=== PATIENT | male | born 1970 | race Caucasian/White ===

== ENCOUNTER 2018-04-18 19:59 | Inpatient (IN) | payer BC ==
--- NOTE | 2018-04-18 20:25 | ED ---
HPI Chest Pain - HPI Summary HPI Summary: A 48 y/o male presents to ED c/o constant chest pain/burning reaching 7/10 in severity. Currently, the patient is in pain, however, he characterized the pain as a burn and the heaviness is still present. In the ED room, the patient has a pulse of 93 BPM, O2 saturation of 96% and blood pressure of 184/113. As per triage, "Pt brought immediately to for EKG. Pt c/o left sided chest pain radiating to his LUE since this morning. Pt states pain is progressively getting worse". According to the patient, he woke up this AM when he suddenly felt a burning sensation in his chest. He noted that the pain became heavier and started radiating to under his armpit. After some time, it radiating to his other arm pit and bicep area. He took a total of 5 baby Aspirin which alleviated the pain, however the pain came back. Patient has no known medical conditions such as DM, high cholesterol and HTN, however, he has not been to the doctors in 20 years. SHx of heavy smoker (half pack a day for 25 years). FHx of heart disease and [place] (grandmother at 28 y/o). No PMHx of blood clots. - History of Current Complaint Chief Complaint: EDChestPainROMI Time Seen by Provider: 04/18/18 20:15 Hx Obtained From: Patient Onset/Duration: Started Hours Ago, Still Present Timing: Constant Initial Severity: Moderate Current Severity: Moderate Pain Intensity: 7 Pain Scale Used: 0-10 Numeric Chest Pain Location: Diffuse Chest Pain Radiates: Yes Chest Pain Radiates To:: Arm - Both armpits Character: Burning, Heaviness Aggravating Factor(s): Nothing Alleviating Factor(s): OTC Meds - Aspirin Associated Signs and Symptoms: Positive: Chest Pain - Allergy/Home Medications Allergies/Adverse Reactions: Allergies Allergy/AdvReac Type Severity Reaction Status Date / Time bee pollen Allergy Anaphylatic Verified 04/18/18 20:10 Shock Home Medications: Home Medications NK [No Home Medications Reported] 04/18/18 [History Confirmed 04/18/18] PMH/Surg Hx/FS Hx/Imm Hx Endocrine/Hematology History: Denies: Hx Diabetes Cardiovascular History: Denies: Hx Hypertension - Surgical History Surgery Procedure, Year, and Place: No prior surgeries noted. Infectious Disease History: No Infectious Disease History: Denies: Traveled Outside the [place] in Last 30 Days - Family History Known Family History: Positive: Cardiac Disease, Other - [place] - Social History Alcohol Use: Occasionally Substance Use Type: Reports: None Smoking Status (MU): Heavy Every Day Tobacco Smoker Type: Cigarettes - half pack/day Review of Systems Negative: Fever Positive: Chest Pain All Other Systems Reviewed And Are Negative: Yes Physical Exam - Summary Physical Exam Summary: GENERAL: Patient is a well-developed and nourished male who is lying comfortable in the stretcher. Patient is not in any acute respiratory distress. Normal exam. HEAD AND FACE: Normocephalic EYES: PERRLA, EOMI x 2. EARS: Hearing grossly intact. MOUTH: Oropharynx within normal limits. NECK: Supple, trachea is midline, no adenopathy, no JVD, no carotid bruit. CHEST: Symmetric, no tenderness at palpation LUNGS: Clear to auscultation bilaterally. No wheezing or crackles. CVS: Regular rate and rhythm, S1 and S2 present, no murmurs or gallops appreciated. ABDOMEN: Soft, non-tender. Bowel sounds are normal. No abdominal abnormal pulsations. EXTREMITIES: Full ROM in all major joints, no edema, no cyanosis or clubbing. NEURO: Alert and oriented x 3. No acute neurological deficits. Speech is normal and follows commands. SKIN: Dry and warm Triage Information Reviewed: Yes Vital Signs On Initial Exam: Initial Vitals Temp Pulse Resp BP Pulse Ox 98.2 F 81 20 203/106 98 04/18/18 20:08 04/18/18 20:08 04/18/18 20:08 04/18/18 20:08 04/18/18 20:08 Vital Signs Reviewed: Yes Diagnostics - Vital Signs Vital Signs Temp Pulse Resp BP Pulse Ox 04/18/18 20:08 98.2 F 81 20 203/106 98 - Laboratory Result Diagrams: 04/18/18 20:26 04/18/18 20:26 Lab Statement: Any lab studies that have been ordered have been reviewed, and results considered in the medical decision making process. - Radiology CXR Radiology Interpretation Completed By: ED Physician - NO ACUTE PROCESS. PENDING OFFICIAL REPORT. - EKG 1958 Cardiac Rate: NL - 96 BPM EKG Rhythm: Sinus Rhythm EKG Interpretation: L. SIDE ATRIAL ENLARGEMENT, INVERTED T'S IN INFR. LEAD, ST DEPR. LAT. LEAD 2112 Cardiac Rate: NL - 91 BPM EKG Rhythm: Sinus Rhythm ST Segment: Non-Specific - NON-SPECIFIC T-WAVE CHANGES IN THE INFERIOR LEADS Chest Pain Course/Dx - Course Course Of Treatment: A 48 y/o male presents to ED c/o constant chest pain/ burning reaching 7/10 in severity. Initial EKG showed ischemic changes and first troponin was 0.63. Patient was given NTG and started on a heparin drip. Patient's case was discussed with articulation officer, Dr. Jeffries, who recommended a beta jake and repeat EKG and so patient was ordered for metroprolol. Patient pain was controlled with NTG. Patient already took full dose aspirin REGULATORY COMPLIANCE DIRECTOR. I Discussed results with patient. Patient's case was discussed with hospitalist for admission. Patient was seen and evaluated by articulation officer and hospitialist at bedside and was subsequently admitted to ICU. Patient stable upon admission. - Diagnoses Provider Diagnoses: STEMI (ST elevation myocardial infarction), Chest pain - Provider Notifications Discussed Care Of Patient With: Nidia Jeffries Time Discussed With Above Provider: 21:10 Instructed by Provider To: Other - Recommends Beta Jake and Repeat EKG. 2202 Dr. Flynn accepts patient for admission. - Critical Care Time Critical Care Time: 30-74 min Discharge - Sign-Out/Discharge Documenting (check all that apply): Patient Departure - ADMIT, Sign-Out Patient Signing out patient TO: Nadeen Sim Receiving patient FROM: Johnnie Vail - Discharge Plan Condition: Stable Disposition: ADMITTED TO [facility] - Billing Disposition and Condition Condition: STABLE Disposition: Admitted to [facility] - Attestation Statements Document Initiated by Scribe: Yes Documenting Scribe: Luis Fernando Bullock Provider For Whom Scribe is Documenting (Include Credential): Johnnie Vail MD Scribe Attestation: Luis Fernando Ricci, scribed for Johnnie Vail MD on 04/19/18 at 0118. Scribe Documentation Reviewed: Yes Provider Attestation: The documentation as recorded by the Luis Fernando ashraf accurately reflects the service I personally performed and the decisions made by me, Johnnie Vail MD
[2018-04-18 20:37] LABS: ABS Basophils 0.2 10^3/ul (0-0.2); ABS Eosinophils 0.1 10^3/ul (0-0.6); ABS Lymphocytes 2.7 10^3/ul (1.0-4.8); ABS Monocytes 0.9 10^3/ul (0-0.8); ABS Neutrophils 6.3 10^3/ul (1.5-7.7); ABS Nucleated RBC 0 10^3/ul; Eosinophil % 1.4 % (0-6); Hematocrit 46 % (42-52); Hemoglobin 16.1 g/dl (14.0-18.0); Lymphocyte % 26.6 % (25-47); Mean Corpuscular HGB Conc 35 g/dl (31-36); Mean Corpuscular Hemoglobin 32 pg (27-31); Mean Corpuscular Volume 92 fL (80-94); Mean Platelet Volume 8.6 um3 (7.4-10.4); Nucleated Red Blood Cells % 0; Platelet Count 246 10^3/ul (150-450); Red Blood Count 4.99 10^6/ul (4.00-5.40); Red Cell Distribution Width 14 % (10.5-15); White Blood Count 10.3 10^3/ul (3.5-10.8)
[2018-04-18 20:44] LABS: INR 0.82 (0.77-1.02)
[2018-04-18] MEDS ORDERED: Nitroglycerin TAB 0.4 MG* 0.4 MG TAB SL ONE (20:52)
[2018-04-18 20:53] LABS: EGFR Non-African American 61.1 (>60)
[2018-04-18] MEDS ORDERED: Metoprolol Tartrate TAB* 25 MG PO ONE ×2 (21:13→23:14)
[2018-04-18] MEDS ORDERED: Heparin DRIP 25,000 UNITS(*) 25,000 UNITS/500 ML BAG IV SCH ×2 (21:15→23:30)
[2018-04-18] MEDS: Heparin VIAL(*) 5000 UNITS/ML VIAL (FIVE THOUSAND) IV SCH (21:35)
[2018-04-18] MEDS ORDERED: nitroGLYCERIN DRIP* 25,000 MCG/250 ML BTL ONE (22:44)
[2018-04-18] MEDS: nitroGLYCERIN DRIP* 25,000 MCG/250 ML BTL IV SCH (23:05)
[2018-04-18] MEDS ORDERED: Atorvastatin* 40 MG TAB PO ONE (23:16)
[2018-04-18] MEDS ORDERED: Metoprolol Tartrate IV* 1 MG/ML 5 ML VIAL IV ONE (23:24)
[2018-04-18 23:31] LABS: Urine Appearance Clear; Urine Blood Negative (Negative); Urine Color Yellow; Urine Ketones Negative (Negative); Urine Protein Negative (Negative); Urine Specific Gravity 1.015 (1.010-1.030); Urine Urobilinogen Negative (Negative)
[2018-04-18] MEDS ORDERED: Al Hydrox/Mg Hydrox/Simet LIQ* 30 ML UDC PO ONE (23:32)
[2018-04-18] MEDS ORDERED: Lidocaine 2% VISCOUS* 15 ML UDC PO ONE (23:32)
[2018-04-19] MEDS ORDERED: Metoprolol Tartrate TAB* 25 MG PO ONE (00:09)
[2018-04-19] MEDS ORDERED: NS 0.9% 100 ML* 100 ML IV ONE (00:16)
[2018-04-19] MEDS ORDERED: Temazepam CAP* 15 MG PO ONE ×2 (00:17→21:25)
--- NOTE | 2018-04-19 03:08 | HP ---
CC: Dr. Jeffries * HISTORY AND PHYSICAL: DATE OF ADMISSION: 04/18/18 PRIMARY CARE PROVIDER: None. ATTENDING PHYSICIAN WHILE IN THE HOSPITAL: Dr. Nadeen Sim * (report dictated by Gustavo Crockett NP). CHIEF COMPLAINT: Chest pain. HISTORY OF PRESENTING ILLNESS: Mr. Dick is a 48-year-old male patient. He has a history of tobacco abuse only, history of spinal fusion. He comes into the ED today stating that around 9 o'clock he was at work today, he started noticing a chest discomfort, burning, pressure, heaviness. It went into underneath both his arms. No associated nausea, diaphoresis, or sweating. He has had been an hour into this, the pain was getting worse, he called his mother to bring him some aspirin. He took that aspirin, the pain got better throughout the day, it was down to about a 2; however, later this evening around 1900 when he was going home from work, he started having discomfort again , much more severe. He was concerned because it was starting to go into his shoulders and down the left arm. It was pressure, burning, heaviness, tight. He called his and the patient came into the ER to be evaluated. He denied any recent cough, fevers, chills. The pain does not worsen with position. He just described it as burning, heaviness, tightness, pressure in the chest that just is not getting any better. He does state that he has not had any of these symptoms in the last several weeks that he is aware of. No exertional chest pain. He does, again, carry the history of smoking. He does not see a primary routinely. He states that he has not had any recent trips or long travel. No recent surgeries. No calf pain or leg tenderness. He came into the ED. It was noted that his troponin was 0.63. His CK-MB was elevated. He was evaluated. He was started on beta-blockers, aspirin, heparin. It was noted that his blood pressure was poorly controlled while he was here; however, when seeing him, he was complaining that the pain was getting worse again at about 8/ 10. So, because of this, we were asked to evaluate for admission. PAST MEDICAL HISTORY: Again, significant for tobacco abuse. PAST SURGICAL HISTORY: He has had spinal fusion. MEDICATIONS: Home meds are denied. ALLERGIES TO MEDICATIONS: BEES. FAMILY HISTORY: His maternal grandmother had an ND when she was in her 20s according to the patient. His mother is a diabetic. Father had stents when he was in his 70 for a CAD. SOCIAL HISTORY: He is a half a pack a day smoker. He does drink occasionally. 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 Surrogate decision maker is his . REVIEW OF SYSTEMS: There is no documented fever. He denied having any significant weight change. There was no double vision. There was no ear discharge. He denied having any rhinorrhea. There was no sore throat, no thyroid enlargement. He did admit the chest pain per my HPI. There was no orthopnea, no nocturnal dyspnea. He denies having any abdominal pain. There was no nausea. There was no vomiting. There was no dysuria. There was no frequency. There was no seizure. No loss of consciousness. No pruritus and no skin ulcerations. Review of 14 systems completed, all others were negative. PHYSICAL EXAMINATION GENERAL: At this time, Mr. Dick is a 48-year-old male patient. He appears to be well nourished, well developed. He is sitting in the ED stretcher. He does not appear to be in any acute distress. VITAL SIGNS: Blood pressure 203/106, pulse 81, respirations 20, O2 sat 98%, temperature 98.2. HEENT: Head is atraumatic and normocephalic. Eyes: EOMs are intact. Sclerae anicteric, not pale. Throat: Oral mucosa appears to be moist. No oropharyngeal erythema. NECK: Supple. LUNGS: Clear to auscultation bilaterally. No wheezes, rales, or rhonchi. HEART: Sounds S1, S2. He had a regular rate and rhythm. No murmurs, rubs, or gallops. ABDOMEN: Soft, it was flat, it was nontender. Bowel sounds were present. EXTREMITIES: Pulses were 2+ throughout. He is moving all 4 extremities with 5/ 5 strength. NEUROLOGICAL: The patient is awake, he is alert, and he is oriented x3. His tongue is midline. Curtain Cleaner were equal. He had no gross focal deficits. SKIN: Intact. DIAGNOSTIC STUDIES/LAB DATA: Labs today are revealing a WBC of 10.3, RBC of 4.99, hemoglobin of 16.1, hematocrit of 46, platelet count of 246. INR was 0.82 , PTT was 32. D-dimer less than 200. The sodium was 136, potassium was 4.1, chloride of 103, bicarb 25, BUN 13, creatinine of 1.26, his glucose was 110, lactate 1.9, calcium 9.3. Mag 1.9. Total bili 0.4, AST 37, ALT 50, alk phos 106. CK-MB 10.7. Troponin 0.63. His BNP was 14. Albumin was 4.2. Urine obtained, it was negative. He had several EKGs in the ED, last one at 2300. Most recent at 2300 showed normal sinus rhythm, rate of 71, no ST elevations or T-wave inversions. His initial EKG at 1999 showed normal sinus rhythm, appears to have LVH, no ST elevations or T-wave inversions were noted. A chest x-ray obtained today showed no pulmonary edema. The costophrenic angles appear to be clear. No infiltrates were noted. Old medical records were reviewed. ASSESSMENT AND PLAN: Mr. Dick is a 48-year-old male patient coming into the ED today with complaints of chest discomfort, intermittently throughout the day today and chest pressure at times, described as a burning, who came into the ED , was noted that his troponin was elevated and he continued to have worsening chest pain on my evaluation. We were asked to evaluate for admission. He will be admitted under inpatient status for: 1. Vdd-YH-jmcyjezzq myocardial infarction. At this point, I did touch base with Dr. Jeffries. I had asked her to come to the bedside to evaluate the patient given that he is having ongoing chest pain. I have him on nitroglycerin and titrating this to effect, trying to get better control of his blood pressure. I am sending off a urine tox as to make sure there is no stimulants on board, just cocaine. I am getting a repeat troponin done now. Echo was being done at the bedside with Dr. Jeffries in the morning and again with serial EKGs. He received aspirin today. We are going to continue aspirin , statin, beta-lana therapy, heparin, and nitrates and place in the ICU for close monitoring and may need to consider catheterization if we cannot get his chest pain better controlled. 2. Hypertensive emergency. Given the fact that his troponin is elevated and he is having active chest pain, I do have him on a nitroglycerin drip. My goal is to try to get that systolic less than 160 and the diastolic less than 100 and continue to follow. 3. DVT prophylaxis: He is on a heparin drip. 4. Fluid, electrolytes, nutrition: He is n.p.o. pending cardiology evaluation. 5. Code status: Full code. TIME SPENT: On admission, was 60 minutes, greater than half the time was spent [id number] with the patient obtaining my history and physical, other half the time was spent going over the plan of care with the patient and implementing plan of care. I did discuss the plan of care with my attending, Dr. Sim; she is in agreement. GUSTAVO CROCKETT, FERNANDO [id number]/[facility] #: [id number] MTDD
--- NOTE | 2018-04-19 04:21 | CONS ---
CC: Hospitalist Service CARDIOLOGY CONSULTATION NOTE: DATE OF CONSULT: 04/18/18 REASON FOR CONSULT: Chest pain and elevated troponins. CHIEF COMPLAINT: Chest discomfort. HISTORY OF PRESENT ILLNESS: Mr. Dick is a 48-year-old gentleman with no prior cardiac history. He has not seen a doctor in 20 years. 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 He presented to the emergency room. His initial troponin was mildly elevated. He was hypertensive. He was treated with heparin drip, aspirin, 25 mg of oral Lopressor, and a nitroglycerin drip had been started at low levels at the time of my arrival and he was still having chest pain. His 8/10 chest pain had decreased to 2/10 by the time I saw him. The patient is an active smoker. He denies any recent travel, increased exertion, fevers, chills, sweats, viral illnesses, or anything else unusual. The patient has, for a year had palpitations with the caffeine use, but no prior chest discomfort or exercise intolerance. PAST MEDICAL HISTORY: The patient has no past medical history, but again he does not see doctors. MEDICATIONS: The patient was on no outpatient medications. ALLERGIES: Include PENICILLINS and BEE STINGS. FAMILY HISTORY: Father is in his 70s and recently had a heart cath, positive for coronary disease, but the patient does not know additional details. There is a family history of diabetes. SOCIAL HISTORY: He is an active smoker, at least to half a pack a day. Denies cocaine use. Drinks caffeine. No significant alcohol intake. . is at the bedside. 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 REVIEW OF SYSTEMS: Fourteen-point review of systems was negative for orthopnea , PND, chest pain prior today. He did take [id number] Motrin as recently as yesterday and today did not say what he is taking it for. Again, no decline in functional ability. No recent chest pain. All other 15-point review of systems was negative. PHYSICAL EXAMINATION: He is 6 feet 1 inch, weighs 235 pounds, with a BMI of 31. Vitals: Blood pressure on arrival to the emergency room was 203/106 with pulse 81 to 95 beats a minute, currently blood pressure 131/98; pulse is 72; respiratory rate 17; oxygen saturation 94%; his temperature on arrival 98.2. General Appearance: Mild to moderately overweight middle-aged gentleman lying at 30 degrees, in no acute distress. Psychologically, pleasant and cooperative. Neurologically, awake, alert, oriented to person, place, and time. Cranial nerves II through XII intact. Grossly normal sensory and motor function in the upper and lower extremities in the bed. Skin: Warm, dry. No cyanosis or rashes. HEENT: Mucous membranes are moist. Neck: Without increased JVP. Good carotid pulses without audible bruits. Breath sounds clear with good effort. No wheezes, rales, rhonchi. Coronary: S1, S2, regular without murmurs or rubs. Abdomen: Soft, nontender. No hepatomegaly. Pulses: Radial pulses 3+ and symmetrical, posterior tibial pulses 3+ and symmetrical. Lower extremities are nonedematous. DIAGNOSTIC STUDIES/LAB DATA: White count 10.3, hematocrit 46, platelets 246. INR 0.82. D-dimer less than 200. Sodium 136, potassium 4.1, chloride 103, bicarb 8, BUN 13, creatinine 1.26, glucose 110. ALT 50. Troponin #1, 0.63; troponin #2, 0.99. CPK-MB 10.7. Urinalysis: Negative for esterase and nitrites, negative for glucose, negative for protein. Tox screen negative. EKG #1 at 7 tonight showed normal sinus rhythm at 96 beats a minute, QRS axis + 60 with normal AV and IV conduction times, poor R-wave progression in V1 and V2 , with some mild ST depression in the lateral leads and mild ST elevation in lead III. EKG #2 at 3 shows normal sinus rhythm at 91 beats a minute, QRS axis +45, normal AV and IV conduction times, some subtle nonspecific ST changes. EKG #3 done at 2308 shows normal sinus rhythm at 71 beats a minute, QRS axis +60 , normal AV and IV conduction times, improvement in inferior ST depression, within limits of normal. Echo at bedside showed LVH, no wall motion abnormalities noted, normal contractility. Limited bedside echo using ED Sono site machine. Chest x-ray not interpreted, but reviewed personally and has some mild cephalization in the left lung and some hilar prominence. IMPRESSION AND PLAN: In summary, Mu Dick is a 48-year-old male, who presents with anginal chest pain, some subtle ST changes in his EKG, elevated troponins. He has atherosclerotic risks of active smoking, possible hypertension without his awareness and his glucoses are elevated, he has a family history of atherosclerotic heart disease and we do not yet have his lipid panel. Mr. Dick is having a non-Q wave myocardial infarction, which I am going to try to stabilize him with additional oral beta-lana, he did in the ED receive two 25 mg Lopressor IV push, we will continue to up titrate his nitroglycerine drip. We will continue his heparin drip and the aspirin. He is on high dose atorvastatin. If he is not able to be stabilized rapidly, we may call in the cath team tonight. Otherwise, he will be cathed in the morning. I reviewed the indications, risks, and benefits with the patient in the presence of his with this procedure. Additional recommendations will be made pending his clinical course and response to the above measures. I personally strongly counseled him in the presence of his to stop smoking. [id number]/[facility] #: [id number] [place]
[2018-04-19] MEDS: nitroGLYCERIN DRIP* 25,000 MCG/250 ML BTL IV SCH ×2 (04:25→09:49)
[2018-04-19] MEDS: Acetaminophen TAB* 325 MG PO PRN ×4 (04:40→20:10)
[2018-04-19] MEDS: Heparin VIAL(*) 5000 UNITS/ML VIAL (FIVE THOUSAND) IV SCH (05:03)
[2018-04-19 06:41] LABS: EGFR Non-African American 74.6 (>60)
--- NOTE | 2018-04-19 08:07 | RAD ---
Indication: Chest pain. Single frontal view of the chest performed at 2040 hours was reviewed. No prior study is available for comparison. No mediastinal shift is noted. Heart is of normal size and configuration. Lung sims appear clear. IMPRESSION: NO ACTIVE CARDIOPULMONARY DISEASE IS NOTED. R0
--- NOTE | 2018-04-19 08:26 | ECHO ---
Patient: AYANA ROBERTO [facility] Rec#: [id number] : 1970 Date: 04/19/2018 Age: 48y Height: 185 cm / 72.8 in Weight: 107 kg / 235.8 lbs Sex: M BSA: 2.3 Room#: ICU 2 Admit Date#: 04/18/2018 Type: Inpatient Referring: Gustavo Crockett NP Reading: Kameron Figueroa MD Real Estate Manager: Veena GonzalezRDCS,RDMS Transthoracic Echocardiogram Indication: ID BP: 125/84 HR: 63 Rhythm: NSR Findings History: Smoker Technical Comments: The study quality is good. Left Ventricle: The left ventricular chamber size is normal. Moderate concentric left ventricular hypertrophy is observed. There is a prominent septal knuckle. Global left ventricular wall motion and contractility are within normal limits. There is normal left ventricular systolic function. The estimated ejection fraction is 55-60%. There is no consistent Doppler evidence of clinically significant diastolic dysfunction. Left Atrium: The left atrial chamber size is normal. Right Ventricle: The right ventricular chamber size and systolic function are within normal limits. Right Atrium: The right atrial cavity size is normal. Aortic Valve: The aortic valve is trileaflet. There is no evidence of aortic valve thickening. Systolic excursion of the aortic valve is normal. There is no evidence of aortic regurgitation. There is no evidence of aortic stenosis. Mitral Valve: The mitral valve leaflets appear normal. There is no evidence of mitral regurgitation. There is no evidence of mitral stenosis. Tricuspid Valve: The tricuspid valve leaflets are normal. There is trace tricuspid regurgitation. Unable to estimate the right ventricular systolic pressure. Pulmonic Valve: There is no evidence of pulmonic valve thickening. There is no evidence of pulmonic regurgitation. Pericardium: There is no significant pericardial effusion. Aorta: The aortic root appears normal. There is no dilatation of the aortic arch. Pulmonary Artery: The main pulmonary artery appears normal. Venous: The inferior vena cava is dilated. There is a greater than 50% respiratory change in the inferior vena cava dimension. Summary: There was not any prior study for comparison. Conclusions Moderate concentric left ventricular hypertrophy is observed. Global left ventricular wall motion and contractility are within normal limits. The estimated ejection fraction is 55-60%. There is no evidence of aortic stenosis. There is no evidence of mitral regurgitation. There is trace tricuspid regurgitation. Unable to estimate the right ventricular systolic pressure. There is no significant pericardial effusion. Measurements Name Value Normal Range RVIDd (AP) 2D 2.9 cm (0.9 - 2.6) RVDdMajor (2D) 3.3 cm (2.2 - 4.4) RAd ISD 4CH 5 cm (3.4 - 4.9) RA (A4C)W 4 cm (2.9 - 4.6) IVSd (2D) 1.7 cm (0.6 - 1) LVPWd (2D) 1.4 cm (0.6 - 1) LVIDd (2D) 4.8 cm (3.6 - 5.4) LVIDs (2D) 3.3 cm - LV FS (2D) 32 % (25 - 45) Aortic Annulus 2.3 cm (1.4 - 2.6) Ao root diameter (2D) 3.2 cm (2.1 - 3.5) Ascending Ao 3.2 cm (2.1 - 3.4) Aortic arch 3 cm (1.8 - 3.4) LA dimension (AP) 2D 4.2 cm (2.3 - 3.8) LAd ISD 4CH 5.4 cm (2.9 - 5.3) LA ISD 4CH W 4.3 cm (2.5 - 4.5) Name Value Normal Range LA ESV BP (A/L) index 28 ml/m2 - Name Value Normal Range MV E-wave Vmax 0.7 m/sec - MV deceleration time 148 msec - MV A-wave Vmax 0.5 m/sec - MV E:A ratio 1.4 ratio - P. vein S-wave Vmax 0.4 m/sec - P. vein D-wave Vmax 0.4 m/sec - P. vein S:D Vmax ratio 1 ratio - P. vein A-wave duration 116 msec - LV septal e' Vmax 0.1 m/sec - LV lateral e' Vmax 0.09 m/sec - LV E:e' septal ratio 7 ratio - LV E:e' lateral ratio 8 ratio - Name Value Normal Range AV Vmax 1.3 m/sec - AV VTI 25 cm - AV peak gradient 7 mmHg - AV mean gradient 4 mmHg - LVOT Vmax 0.9 m/sec - LVOT VTI 16 cm - LVOT peak gradient 3.2 mmHg - LVOT mean gradient 2 mmHg - ADIA Vmax 0.8 m/sec - Name Value Normal Range RAP 8 mmHg - IVC diameter 2.4 cm - Name Value Normal Range PV Vmax 0.7 m/sec - PV peak gradient 2 mmHg -
[2018-04-19] MEDS: Metoprolol Tartrate TAB* 25 MG PO SCH ×2 (08:40→20:11)
[2018-04-19] MEDS: Aspirin EC TAB* 81 MG TAB.EC PO SCH (08:40)
[2018-04-19] MEDS ORDERED: nitroGLYCERIN DRIP* 25,000 MCG/250 ML BTL ONE (10:02)
[2018-04-19] MEDS ORDERED: Midazolam* 1 MG/ML 10 ML VIAL (10 MG) ONE (10:02)
[2018-04-19] MEDS ORDERED: Lidocaine 1% INJ* 10 MG/ML 30 ML SDV ONE (10:02)
[2018-04-19] MEDS ORDERED: Heparin 2 UNITS/ML IVPREMIX* 2,000 ML IV ONE (10:02)
[2018-04-19] MEDS ORDERED: VERAPAMIL 2.5 MG/ML 2 ML VIAL ** 5 mg/2 ml ONE ×2 (10:02→10:28)
[2018-04-19] MEDS ORDERED: Heparin(*) 1000 UNIT/ML 10 ML VIAL CATH LAB IV ONE (10:02)
[2018-04-19] MEDS ORDERED: fentaNYL* 50 MCG/ML 2 ML VIAL (100 MCG VIAL) ONE ×2 (10:02→10:21)
[2018-04-19] MEDS ORDERED: Iohexol 350 (CONTRAST) 200 ML MDV IV ONE ×2 (10:03→10:40)
[2018-04-19] MEDS ORDERED: NS 0.9% 1000 ML* 1,000 ML IV SCH (11:15)
[2018-04-19] MEDS ORDERED: Clopidogrel TAB* 75 MG PO ONE (11:23)
[2018-04-19] MEDS ORDERED: Clopidogrel TAB* 75 MG ONE (11:38)
[2018-04-19] MEDS: Isosorbide Mononitrate ER TAB* 30 MG PO SCH (12:11)
--- NOTE | 2018-04-19 13:15 | PN ---
Subjective Date of Service: 04/19/18 Interval History: HOSPITALIST PROGRESS NOTE Patient seen and examined at bedside. Care reviewed and d/w Jessica France RN. He feels better this AM, chest pain has subsided, denies dyspnea. Family History: Unchanged from Admission Social History: Unchanged from Admission Past Medical History: Unchanged from Admission Objective Active Medications: Acetaminophen (Tylenol Tab*) 650 mg PO Q4H PRN PRN Reason: FEVER/PAIN Last Admin: 04/19/18 08:40 Dose: 650 mg Aspirin (Aspirin Ec Tab*) 81 mg PO DAILY [facility] Last Admin: 04/19/18 08:40 Dose: 81 mg Atorvastatin Calcium (Lipitor*) 40 mg PO 1700 [facility] Clopidogrel Bisulfate (Plavix Tab*) 75 mg PO DAILY [facility] Heparin Sodium (Porcine) (Heparin Vial(*)) 0 units IV .PER PROTOCOL [facility] Last Admin: 04/19/18 05:03 Dose: 4,000 units Nitroglycerin/Dextrose (Nitroglycerin Drip*) 25,000 mcg in 250 mls @ 3 mls/hr IV .(Initial Rate) [facility]; Protocol Last Admin: 04/19/18 09:49 Dose: 42 mls/hr Sodium Chloride (Ns 0.9% 1000 Ml*) 1,000 mls @ 125 mls/hr IV .per rate [facility] Stop: 04/19/18 15:14 Last Admin: 04/19/18 11:43 Dose: 125 mls/hr Isosorbide Mononitrate (Imdur Er Tab*) 30 mg PO DAILY [facility] Last Admin: 04/19/18 12:11 Dose: 30 mg Metoprolol Tartrate (Lopressor Tab*) 25 mg PO BID [facility] Last Admin: 04/19/18 08:40 Dose: 25 mg Vital Signs - 8 hr 04/19/18 04/19/18 04/19/18 05:15 05:30 05:45 Temperature Pulse Rate 64 64 64 Respiratory 18 14 20 Rate Blood Pressure 106/60 126/67 115/60 (mmHg) O2 Sat by Pulse 92 94 91 Oximetry 04/19/18 04/19/18 04/19/18 06:00 06:01 06:15 Temperature Pulse Rate 61 69 64 Respiratory 17 16 20 Rate Blood Pressure 121/60 122/74 (mmHg) O2 Sat by Pulse 96 92 93 Oximetry 04/19/18 04/19/1804/19/18 06:30 06:45 07:00 Temperature Pulse Rate 64 60 62 Respiratory 15 14 16 Rate Blood Pressure 115/82 125/71 125/84 (mmHg) O2 Sat by Pulse 92 95 91 Oximetry 04/19/18 04/19/18 04/19/18 07:01 07:15 07:30 Temperature Pulse Rate 63 64 59 Respiratory 16 20 12 Rate Blood Pressure 113/66 130/69 (mmHg) O2 Sat by Pulse 96 96 95 Oximetry 04/19/18 04/19/18 04/19/18 07:41 07:45 08:00 Temperature Pulse Rate 64 62 76 Respiratory 19 17 15 Rate Blood Pressure 124/63 109/66 132/96 (mmHg) O2 Sat by Pulse 94 94 96 Oximetry 04/19/18 04/19/18 04/19/18 08:12 08:15 08:31 Temperature 98.4 F Pulse Rate 69 71 Respiratory 19 21 Rate Blood Pressure 151/108 138/83 (mmHg) O2 Sat by Pulse 95 96 Oximetry 04/19/18 04/19/18 04/19/18 08:45 09:00 09:01 Temperature Pulse Rate 70 63 71 Respiratory 16 15 18 Rate Blood Pressure 153/77 125/78 (mmHg) O2 Sat by Pulse 96 93 97 Oximetry 04/19/18 04/19/18 04/19/18 09:15 09:30 09:45 Temperature Pulse Rate 62 64 65 Respiratory 16 10 17 Rate Blood Pressure 111/78 118/78 127/78 (mmHg) O2 Sat by Pulse 92 96 92 Oximetry 04/19/18 04/19/18 04/19/18 10:00 11:15 11:30 Temperature Pulse Rate 64 64 Respiratory 13 21 15 Rate Blood Pressure 112/74 115/76 (mmHg) O2 Sat by Pulse 93 92 Oximetry 04/19/18 04/19/18 04/19/18 11:46 11:52 12:00 Temperature 98.2 F Pulse Rate 70 69 Respiratory 21 12 18 Rate Blood Pressure 115/75 122/80 (mmHg) O2 Sat by Pulse 93 94 Oximetry 04/19/18 04/19/18 04/19/18 12:01 12:15 12:30 Temperature Pulse Rate 67 73 75 Respiratory 20 22 17 Rate Blood Pressure 121/73 119/67 (mmHg) O2 Sat by Pulse 93 92 92 Oximetry 04/19/18 04/19/18 12:45 12:58 Temperature Pulse Rate 67 Respiratory 18 19 Rate Blood Pressure 115/66 (mmHg) O2 Sat by Pulse 91 Oximetry Oxygen Devices in Use Now: None Appearance: Pleasant gentleman sitting up in bed in NAD. Eyes: No Scleral Icterus Ears/Nose/Mouth/Throat: Mucous Membranes Moist Neck: Trachea Midline Respiratory: Symmetrical Chest Expansion and Respiratory Effort, Clear to Auscultation Cardiovascular: NL Sounds; No Murmurs; No JVD, RRR Neurological: Alert and Oriented x 3, NL Muscle Strength and Tone Result Diagrams: 04/18/18 20:26 04/19/18 05:58 Assess/Plan/Problems-Billing Assessment: Mr Dick is a 48yo M with PMH of tobacco abuse, who presented to ED with c/o chest pain, found to have NSTEMI. - Patient Problems (1) NSTEMI (non-ST elevated myocardial infarction) Comment: - Continue medical management with Aspirin/Plavix, metoprolol, nitrates. - For cardiac cath today. (2) Tobacco abuse Comment: - Advised about tobacco cessation. - Nicotine supplementation. (3) DVT prophylaxis Comment: - SQ heparin. (4) Full code status Status and Disposition: Inpatient.
[2018-04-19] MEDS ORDERED: Mouth Piece, Nicotine* 1 EACH CARTRIDGE INH PRN ×2 (13:17)
[2018-04-19] MEDS ORDERED: Nicotine GUM* 2 MG PO PRN (13:17)
[2018-04-19] MEDS ORDERED: Nicotine Inhaler* 10 MG AMP INH PRN (13:17)
[2018-04-19] MEDS: Nicotine PATCH 14 MG/24 HR* PATCH TRANSDERM SCH (14:59)
[2018-04-19] MEDS: Atorvastatin* 40 MG TAB PO SCH (16:04)
[2018-04-19] MEDS: Nicotine Patch Removal NOTE FOLLOW UP SCH (20:13)
[2018-04-20] MEDS: Acetaminophen TAB* 325 MG PO PRN ×2 (00:20→10:00)
[2018-04-20 06:04] LABS: EGFR Non-African American 82.6 (>60)
[2018-04-20] MEDS: Isosorbide Mononitrate ER TAB* 30 MG PO SCH (08:33)
[2018-04-20] MEDS: Aspirin EC TAB* 81 MG TAB.EC PO SCH (08:34)
[2018-04-20] MEDS: Clopidogrel TAB* 75 MG PO SCH (08:34)
[2018-04-20] MEDS: Metoprolol Tartrate TAB* 25 MG PO SCH (08:34)
[2018-04-20] MEDS: Nicotine PATCH 14 MG/24 HR* PATCH TRANSDERM SCH (08:54)
[2018-04-20] MEDS: Metoprolol Tartrate TAB* 50 mg PO SCH ×2 (09:50→21:40)
[2018-04-20] MEDS: Isosorbide Mononitrate ER TAB* 60 MG PO SCH (09:50)
[2018-04-20] MEDS ORDERED: Isosorbide Mononitrate ER TAB* 30 MG PO ONE (10:00)
[2018-04-20] MEDS ORDERED: Metoprolol Tartrate TAB* 25 MG PO ONE (10:00)
[2018-04-20] MEDS ORDERED: Ibuprofen TAB* 600 MG PO PRN (11:38)
--- NOTE | 2018-04-20 12:08 | CATH ---
CC: Dr. Nidia Jeffries. CARDIAC CATHETERIZATION: DATE OF PROCEDURE: 04/19/2018 PROCEDURE: Coronary arteriography, left heart catheterization, left ventriculography. INDICATION FOR THE PROCEDURE: Asked by Dr. Jeffries to perform cardiac catheterization in light of patient's presentation with chest discomfort and abnormal cardiac enzymes suggesting acute coronary syndrome. APPROACH: Right radial artery. PRECARDIAC CATHETERIZATION LABORATORY RESULTS: Hemoglobin and hematocrit of 16.1 and 46 with platelet count of 246,000. BUN and creatinine of 12 and 1.1. Sodium 136, potassium 3.8, chloride 104, bicarb 26. EQUIPMENT UTILIZED: 1. Right radial artery sheath was a 6-Portuguese [place] sheath. 2. Diagnostic guidewire was a 260 length [place] curve guidewire. 3. Diagnostic coronary catheter: A 5-Portuguese TIG-4 curve catheter. 4. Left heart catheterization. Catheter was a 5-Portuguese pig Performa radial catheter. MEDICATIONS GIVEN DURING CARDIAC CATHETERIZATION: Included, 1. Heparin 1000 units bolus. 2. Fentanyl 12.5 mcg IV. 3. Versed 1 mg IV. Radial artery cocktail including 100 mcg of nitroglycerin, 3 mg of verapamil intra- arterially (no heparin was given as the patient was currently on a heparin drip). PROCEDURE IN DETAIL: The patient was interviewed and examined in the intensive care unit with risks and benefits were explained. The understood them and wished to proceed. In the coronary care unit, ultrasound was performed to assess the right radial artery for approach and was found to be acceptable for this. The patient was brought to the cardiovascular laboratory where a formal time- out was performed. The right radial artery was prepped and draped in a sterile fashion, anesthetized with 1% lidocaine. Right radial artery was entered under ultrasound guidance and the sheath was placed. Coronary arteriography was then performed using the TIG-4 catheter. Following this, central aortic pressure was recorded using the pig Performa catheter advanced the ascending aorta. Central aortic pressure was recorded. The catheter was then passed across the aortic valve into the left ventricle. The left ventricular pressure was recorded. Left ventriculography was then performed utilizing a total of 28 cc of Omnipaque dye at a rate of 14 cc per second. Following this, the catheter was pulled back across the aortic valve to recheck gradient. At the end of the case, the catheter and sheath was removed and hemostasis was obtained and a Vasc Band was placed. The reverse Barbeau was a B. The patient tolerated the procedure well and was transported back to the intensive care unit. The total contrast use was 90 cc of Omnipaque dye. The radiation exposure include 4.3 minutes of fluoro time. The air kerma radiation was 1416 milligray. The DAP radiation was 8424 microgray per meter square. RESULTS: HEMODYNAMIC DATA: Left heart catheterization. Central aortic pressure was recorded at 109/65 with mean 83, left ventricular pressure 117 over left ventricular end diastolic pressure of 20. CORONARY ARTERIOGRAPHY: A. Left coronary artery. 1. Left main - widely patent. 2. Left anterior descending artery. The left anterior descending artery supplied a first small caliber bifurcating diagonal branch followed by a mid diagonal branch followed by smaller caliber third diagonal branch. The LAD traversed to the apical region but not well on to the distal inferior wall. There was mild luminal irregularities, but no significant obstruction seen throughout the course of the vessel. 3. Circumflex artery - a non-dominant vessel with a very thin first obtuse marginal branch and a thin second and third obtuse marginal branch followed by moderate size bifurcating fourth obtuse marginal branch. There appeared to be, in selective views, a question of retrograde filling of the distal portion of the thin first and third obtuse marginal branches. The caliber of these were extremely small well under 0.5 mm. The ostium is a circumflex had a 25 to 30% narrowing. The mid portion had a 25% narrowing before the mid bifurcating obtuse marginal branch. B. Right coronary artery - a large dominant vessel supplying multiple acute marginal branches as well as the PDA and posterior left ventricular branches. Of note, the distal caliber of the vessels appeared to be somewhat small in nature, but no significant focal obstruction was seen throughout the course of the vessel. The proximal portion of what appeared to be the posterior descending artery appeared to have a 35% narrowing. Of note, several of the acute marginal branches prior to the posterior descending artery paralleled the posterior descending artery and supplied blood flow to the inferior wall. LEFT VENTRICULOGRAPHY: Performed in the ORTIZ projection revealed symmetrical contraction of the left ventricle with minimal mid anterior wall hypokinesis but preservation of the rest of the area. Overall ejection fraction is 55%. OVERALL ASSESSMENT: The presence of a thin first, second, and third obtuse marginal branches with question of some retrograde filling to those branches as described above. These vessels were clearly not of a size that could be approached interventionally and best medical management appeared to be most appropriate course of therapy. The patient should be maintained on beta-lana and probably some form of nitrates in addition to aspirin and perhaps 6 to 12 months of clopidogrel for acute coronary syndrome. Eventual outpatient assessment with exercise stress test would be appropriate for further delineation once the patient has been discharged home. Aggressive statin therapy will be pursued in addition to risk factor modification. [id number]/[facility] #: [id number] [place]
--- NOTE | 2018-04-20 12:40 | PN ---
Subjective Date of Service: 04/20/18 Interval History: HOSPITALIST PROGRESS NOTE Patient seen and examined at bedside. Care reviewed and d/w Elizabeth Lerma RN. He feels better this AM. Denies chest pain, palpitations, dyspnea. C/o headache , 5/10, no radiation - has not had any caffeine since admission and usually drinks 2 cups of regular coffee. Family History: Unchanged from Admission Social History: Unchanged from Admission Past Medical History: Unchanged from Admission Objective Active Medications: Acetaminophen (Tylenol Tab*) 650 mg PO Q4H PRN PRN Reason: FEVER/PAIN Last Admin: 04/20/18 10:00 Dose: 650 mg Aspirin (Aspirin Ec Tab*) 81 mg PO DAILY [facility] Last Admin: 04/20/18 08:34 Dose: 81 mg Atorvastatin Calcium (Lipitor*) 40 mg PO 1700 [facility] Last Admin: 04/19/18 16:04 Dose: 40 mg Clopidogrel Bisulfate (Plavix Tab*) 75 mg PO DAILY [facility] Last Admin: 04/20/18 08:34 Dose: 75 mg Device (Nicotine Mouth Piece*) 1 each INH .USE WITH NICOTROL PRN PRN Reason: CRAVING Ibuprofen (Motrin Tab*) 600 mg PO Q6H PRN PRN Reason: PAIN Last Admin: 04/20/18 11:53 Dose: 600 mg Isosorbide Mononitrate (Imdur Er Tab*) 60 mg PO DAILY [facility] Last Admin: 04/20/18 09:50 Dose: Not Given Metoprolol Tartrate (Lopressor Tab*) 50 mg PO BID [facility] Last Admin: 04/20/18 09:50 Dose: Not Given Nicotine (Nicotine Inhaler*) 10 mg INH Q2H PRN PRN Reason: CRAVING Nicotine (Nicotine Patch 14 Mg/24 Hr*) 1 patch TRANSDERM DAILY [facility] Last Admin: 04/20/18 08:54 Dose: 1 patch Nicotine Polacrilex (Nicotine Gum*) 2 mg PO Q2H PRN PRN Reason: CRAVING Pharmacy Profile Note (Nicotine Patch Removal Note*) 1 note FOLLOW UP 2100 [facility] Last Admin: 04/19/18 20:13 Dose: Not Given Vital Signs - 8 hr 04/20/18 04/20/18 04/20/18 04:45 05:00 05:01 Temperature Pulse Rate 62 63 62 Respiratory 16 18 18 Rate Blood Pressure 136/69 124/71 (mmHg) O2 Sat by Pulse 95 96 96 Oximetry 04/20/18 04/20/18 04/20/18 05:15 05:30 05:36 Temperature Pulse Rate 62 70 Respiratory 17 19 14 Rate Blood Pressure 127/73 110/96 (mmHg) O2 Sat by Pulse 96 94 Oximetry 04/20/18 04/20/18 04/20/18 05:45 05:47 06:00 Temperature Pulse Rate 57 61 60 Respiratory 12 16 17 Rate Blood Pressure 183/95 147/81 127/75 (mmHg) O2 Sat by Pulse 95 94 93 Oximetry 04/20/18 04/20/18 04/20/18 06:01 06:15 06:30 Temperature Pulse Rate 58 67 65 Respiratory 16 23 17 Rate Blood Pressure 135/78 124/78 (mmHg) O2 Sat by Pulse 93 95 96 Oximetry 04/20/18 04/20/18 04/20/18 06:46 07:00 07:01 Temperature Pulse Rate 61 59 61 Respiratory 14 15 19 Rate Blood Pressure 150/85 123/72 (mmHg) O2 Sat by Pulse 97 95 96 Oximetry 04/20/18 04/20/18 04/20/18 07:15 07:17 07:30 Temperature Pulse Rate 62 63 Respiratory 18 17 22 Rate Blood Pressure 119/72 127/74 (mmHg) O2 Sat by Pulse 95 95 Oximetry 04/20/18 04/20/18 04/20/18 07:45 08:00 08:01 Temperature Pulse Rate 69 68 63 Respiratory 14 13 20 Rate Blood Pressure 139/99 150/108 (mmHg) O2 Sat by Pulse 95 94 94 Oximetry 04/20/18 04/20/18 04/20/18 08:15 08:30 08:45 Temperature Pulse Rate 66 80 77 Respiratory 13 15 14 Rate Blood Pressure 158/91 149/120 151/100 (mmHg) O2 Sat by Pulse 96 93 94 Oximetry 04/20/18 04/20/18 04/20/18 08:46 09:00 09:01 Temperature Pulse Rate 69 68 Respiratory 14 20 18 Rate Blood Pressure 172/85 (mmHg) O2 Sat by Pulse 95 95 Oximetry 04/20/18 04/20/18 04/20/18 09:11 09:15 09:30 Temperature Pulse Rate 64 Respiratory 13 11 Rate Blood Pressure 145/102 160/99 (mmHg) O2 Sat by Pulse 94 Oximetry 04/20/18 04/20/18 04/20/18 09:45 10:00 10:01 Temperature Pulse Rate Respiratory 16 14 19 Rate Blood Pressure 133/100 156/97 (mmHg) O2 Sat by Pulse Oximetry 04/20/18 04/20/18 04/20/18 10:15 10:20 10:30 Temperature Pulse Rate Respiratory 14 15 15 Rate Blood Pressure 147/100 133/100 (mmHg) O2 Sat by Pulse Oximetry 04/20/18 04/20/18 04/20/18 10:45 11:00 11:01 Temperature Pulse Rate Respiratory 15 10 16 Rate Blood Pressure 134/92 124/82 (mmHg) O2 Sat by Pulse Oximetry 04/20/18 04/20/18 04/20/18 11:15 11:30 11:45 Temperature Pulse Rate Respiratory 12 15 13 Rate Blood Pressure 128/83 139/98 118/83 (mmHg) O2 Sat by Pulse Oximetry 04/20/18 04/20/18 04/20/18 11:48 12:00 12:01 Temperature Pulse Rate Respiratory 18 19 13 Rate Blood Pressure 126/83 (mmHg) O2 Sat by Pulse Oximetry 04/20/18 12:33 Temperature 98.0 F Pulse Rate Respiratory Rate Blood Pressure (mmHg) O2 Sat by Pulse Oximetry Oxygen Devices in Use Now: None Appearance: Pleasant gentleman sitting up in bed in NAD. Eyes: No Scleral Icterus Ears/Nose/Mouth/Throat: Mucous Membranes Moist Neck: Trachea Midline Respiratory: Symmetrical Chest Expansion and Respiratory Effort, Clear to Auscultation Cardiovascular: NL Sounds; No Murmurs; No JVD, RRR Extremities: - - Right wrist with no hematoma/ecchymosis, good pulses, good capillary refill Neurological: Alert and Oriented x 3, NL Muscle Strength and Tone Result Diagrams: 04/18/18 20:26 04/20/18 05:32 Assess/Plan/Problems-Billing Assessment: Mr Dick is a 48yo M with PMH of tobacco abuse, who presented to ED with c/o chest pain, found to have NSTEMI. - Patient Problems (1) NSTEMI (non-ST elevated myocardial infarction) Comment: - Cardiac cath showed no significant large vessel disease, EF 55%. - Plan for medical management with Aspirin, Plavix, nitrates, beta-lana. - Will increase Imdur to 60mg/day and Metoprolol to 50mg BID. - Transfer to Telemetry and continue to monitor. (2) Tobacco abuse Comment: - Advised about tobacco cessation. - Nicotine supplementation. (3) Headache Comment: - Likely secondary to caffeine withdrawal - resume caffeine and add PRN Acetaminophen. (4) DVT prophylaxis Comment: - SQ heparin. (5) Full code status Status and Disposition: Inpatient. Transfer to Telemetry.
[2018-04-20] MEDS: Nicotine Patch Removal NOTE FOLLOW UP SCH (12:47)
[2018-04-20] MEDS: Morphine VIAL* 4 MG/ML VIAL (1 ml vial) IV PRN ×3 (13:21→21:40)
[2018-04-20] MEDS: Atorvastatin* 40 MG TAB PO SCH (16:51)
[2018-04-20] MEDS ORDERED: Ropinirole TAB* 0.5 MG TAB PO ONE (20:59)
[2018-04-20] MEDS ORDERED: Melatonin 3 MG TAB PO PRN (21:06)
[2018-04-21] MEDS: Nicotine Patch Removal NOTE FOLLOW UP SCH (04:06)
[2018-04-21 08:08] VITALS: BP 138/95
[2018-04-21] MEDS: Clopidogrel TAB* 75 MG PO SCH (08:31)
[2018-04-21] MEDS: Isosorbide Mononitrate ER TAB* 60 MG PO SCH (08:31)
[2018-04-21] MEDS: Metoprolol Tartrate TAB* 50 mg PO SCH (08:31)
[2018-04-21] MEDS: Nicotine PATCH 14 MG/24 HR* PATCH TRANSDERM SCH (08:31)
[2018-04-21] MEDS: Aspirin EC TAB* 81 MG TAB.EC PO SCH (08:31)
--- NOTE | 2018-04-22 07:25 | DS ---
CC: Dr. Yuli Brito; Dr. Severiano Day, [facility]; Dr. Jeffries; Dr. Rendon; Dr. Herrera * DISCHARGE SUMMARY: DATE OF ADMISSION: 04/18/18 DATE OF DISCHARGE: 04/21/18 ELECTRONIC ASSEMBLY: Dr. Jeffries. INTERVENTIONAL CARDIOLOGISTS: Dr. Rendon and Dr. Herrera. DISCHARGE DIAGNOSES: 1. Non-ST elevation myocardial infarction. 2. Probable obstructive sleep apnea. 3. Probable restless legs syndrome. 4. Tobacco abuse. MEDICATION LIST: All medications below are new: 1. Aspirin 81 mg p.o. daily. 2. Atorvastatin 40 mg p.o. daily. 3. Plavix 75 mg p.o. daily. 4. Imdur 60 mg p.o. daily. 5. Melatonin 3 mg p.o. at bedtime. 6. Metoprolol tartrate 50 mg p.o. b.i.d. 7. Nicotine inhaler 10 mg inhaled q.2 hours p.r.n. craving. 8. Nicotine patch 14 mg topical daily. 9. Ropinirole 0.25 mg p.o. at bedtime. HOSPITAL COURSE: Mr. Dick is a 48-year-old male with no significant past medical history besides tobacco abuse, who presented to the emergency room on with complaints of chest pain. For more details about his presentation, I refer you to his history and physical. The patient's initial troponin was 0.63 and it peaked at 1.08. The patient was admitted for further management and had a transthoracic echocardiogram that revealed ejection fraction of 55% to 60% with global left ventricular wall motion contractility within normal limits. No significant valvular disease. He was seen in consultation by Cardiology (Dr. Jeffries) and her impression was that the patient was having a non-Q-wave HI and her recommendation was for medical management and stabilization with beta lana, nitroglycerin drip, aspirin, atorvastatin, and heparin drip. The patient was taken to the boot and shoe laborer on 04/19/[address] Rendon and was found to have a thin first, second, and third OM branches with question of some retrograde filling to those branches. Those vessels were clearly not of a size that could be approached interventionally and his recommendation was that medical management would be the most appropriate course of therapy. He recommended beta lana, nitrates in addition to aspirin, and perhaps 6 to 12 months of clopidogrel for acute coronary syndrome. He felt that an eventual outpatient assessment with exercise stress test would be appropriate for further delineation once the patient has been discharged home and also aggressive statin therapy will be pursued in addition to other risk factor modification including tobacco cessation. The patient did well after his procedure. He had resolution of his chest pain and had no other complaints. On further review, the patient states that he does not sleep well and snores and has a clinical picture suggestive of obstructive sleep apnea. He also has complaints compatible with restless legs syndrome. He does not have a primary care provider at this time, so he will follow up at the [facility] on 04/27/18 further evaluation and he will benefit a further workup for sleep apnea. He also has an appointment with Dr. Herrera for post cardiac cath evaluation and he will also schedule an appointment to see Dr. Jeffries. He was advised to stay off his activities until 04/27/18 and after his reevaluation at the [facility], he may be able to resume his activities. PHYSICAL EXAMINATION: Vital Signs: Temperature 97.8, heart rate is 67, respiratory rate is 18, oxygen saturation is 99% on room air, blood pressure is 138/95. General: The patient is a pleasant gentleman, sitting up in bed, in no acute distress. CVS: Normal S1, S2. Regular rate and rhythm. Chest: Breath sounds bilaterally with no added sounds. Abdomen: Soft. Bowel sounds are present. Extremities: No edema. He has good pulses on the right radial site. Good capillary refill. Sensation is intact. Neuro: He is alert and oriented x3. Able to move all 4 extremities. DIET: Heart-healthy diet. ACTIVITIES: As tolerated. The patient received instructions of activity limitation after cardiac cath. DISPOSITION: To home. STATUS WHILE IN THE HOSPITAL: Inpatient. TIME SEEN: Please note that more than 10 minutes was spent for his tobacco cessation education. Please keep in mind this is a summarized version of this patient's hospital stay. If you need more information, please feel free to call me at [phone] or please obtain the full medical records. TIME SPENT: Approximately 45 minutes was spent to complete this discharge. [id number]/[facility] #: [id number] [place]
== END 2018-04-21 10:10 | disposition home or self-care (01) | DRG 190 ==
LOC: ED 19:59 → ICU 23:14 → MEDTELE 04-20 13:06
PROVIDERS: ADMIT Internal Medicine; ATTEND Internal Medicine
PROC: B211YZZ Fluoroscopy of Multiple Coronary Arteries using Other Contrast (ICD-10-PCS; 2018-04-19)
PROC: B215YZZ Fluoroscopy of Left Heart using Other Contrast (ICD-10-PCS; 2018-04-19)
PROC: 4A023N7 Measurement of Cardiac Sampling and Pressure, Left Heart, Percutaneous Approach (ICD-10-PCS; principal; 2018-04-19 13:45)
DX: I21.4 Non-ST elevation (NSTEMI) myocardial infarction (principal); I16.0 Hypertensive urgency; G47.33 Obstructive sleep apnea (adult) (pediatric); G25.81 Restless legs syndrome; F17.210 Nicotine dependence, cigarettes, uncomplicated; R51 Headache; Z91.030 Bee allergy status; Z82.49 Family history of ischemic heart disease and other diseases of the circulatory system; Z83.3 Family history of diabetes mellitus; Z88.0 Allergy status to penicillin
CPT/HCPCS: 36415; 71045; 76937; 80048; 80053; 80061; 80307; 81003; 82550; 82553; 82565; 83036; 83605; 83735; 83880; 84484; 84520; 85025; 85347; 85379; 85610; 85730; 87641; 93005; 93306; 93458; 99285; A9270-GY; J1644; J2250; J2270; J3010; J3490

== ENCOUNTER 2018-12-13 11:57 | Emergency (ER) | payer BC ==
--- NOTE | 2018-12-13 12:09 | ED ---
HPI Chest Pain - HPI Summary HPI Summary: A 48 y/o M presents to ED referred by cardio c/o L-anterior CP described as burning onset approx 0600. Pert PMHx: Patient had a NSTEMI in March 2018; he had the same CP then as today but it included radiating LUE pain which he does not have today. 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 He denies nausea, diaphoresis. Patient states he was at baseline yesterday and this AM. Medications discussed, he confirmed taking his morning medications. - History of Current Complaint Chief Complaint: EDChestPainROMI Time Seen by Provider: 12/13/18 12:07 Hx Obtained From: Patient, Medical Records Onset/Duration: Started Hours Ago, Atraumatic, Still Present Timing: Constant Initial Severity: Moderate Current Severity: Moderate Pain Intensity: 5 Pain Scale Used: 0-10 Numeric Chest Pain Location: Left Anterior Chest Pain Radiates: No Character: Burning Alleviating Factor(s): NTG 123 Associated Signs and Symptoms: Negative: Diaphoresis, Nausea - Additional Pertinent History Primary Care Physician: CHARY - Allergy/Home Medications Allergies/Adverse Reactions: Allergies Allergy/AdvReac Type Severity Reaction Status Date / Time bee pollen Allergy Anaphylatic Verified 12/13/18 12:01 Shock Home Medications: Home Medications Atorvastatin* [Lipitor*] 80 mg PO DAILY 12/13/18 [History Confirmed 12/13/18] Isosorbide Mononitrate ER TAB* [Imdur ER TAB*] 120 mg PO DAILY 12/13/18 [ History Confirmed 12/13/18] Lisinopril TAB* [Prinivil TAB*] 10 mg PO DAILY 12/13/18 [History Confirmed 12/13] Nitroglycerin TAB 0.4 MG* 0.4 mg SL Q5M PRN 12/13/18 [History Confirmed 12/13/18 ] Zolpidem TAB* [Ambien TAB*] 10 mg PO BEDTIME PRN 12/13/18 [History Confirmed ] dilTIAZem HCl [Diltiazem 24Hr ER] 240 mg PO DAILY 12/13/18 [History Confirmed ] PMH/Surg Hx/FS Hx/Imm Hx Endocrine/Hematology History: Denies: Hx Diabetes Cardiovascular History: Denies: Hx Hypertension Musculoskeletal History: Reports: Hx Back Problems - spinal fusion post herniated disk Sensory History: Reports: Hx Contacts or Glasses Denies: Hx Hearing Aid Opthamlomology History: Reports: Hx Contacts or Glasses - Surgical History Surgery Procedure, Year, and Place: spinal fusion Infectious Disease History: No Infectious Disease History: Denies: Traveled Outside the [place] in Last 30 Days - Family History Known Family History: Positive: Cardiac Disease, Other - [place] - Social History Alcohol Use: Occasionally Substance Use Type: Reports: None Smoking Status (MU): Heavy Every Day Tobacco Smoker Type: Cigarettes - half pack/day Review of Systems Negative: Skin Diaphoresis Positive: Chest Pain Negative: Nausea All Other Systems Reviewed And Are Negative: Yes Physical Exam - Summary Physical Exam Summary: Appearance: The patient is well-nourished in no acute distress and in no acute pain. Skin: The skin is warm and dry and skin color reflects adequate perfusion. HEENT: The head is normocephalic and atraumatic. The pupils are equal and reactive. The conjunctivae are clear and without drainage. Nares are patent and without drainage. Mouth reveals moist mucous membranes and the throat is without erythema and exudate. The external ears are intact. The ear canals are patent and without drainage. The tympanic membranes are intact. Neck: the neck is supple with full range of motion and non-tender. There are no carotid bruits. There is no neck vein distension. Respiratory: Chest is non-tender. Lungs are clear to auscultation and breath sounds are symmetrical and equal. Cardiovascular: Heart is regular rate and rhythm. There is no murmur or rub auscultated. There is no peripheral edema and pulses are symmetrical and equal. Abdomen: The abdomen is soft and non-tender. There are normal bowel sounds heard in all four quadrants and there is no organomegaly palpated. Musculoskeletal: There is no back tenderness noted. Extremities are non-tender with full range of motion. There is good capillary refill. There is no peripheral edema or calf tenderness elicited. Neurological: Patient is alert and oriented to person, place and time. The patient has symmetrical motor strength in all four extremities. Cranial nerves are grossly intact. Deep tendon reflexes are symmetrical and equal in all four extremities. Psychiatric: The patient has an appropriate affect and does not exhibit any anxiety or depression. Triage Information Reviewed: Yes Vital Signs On Initial Exam: Initial Vitals Temp Pulse Resp BP Pulse Ox 98 F 95 18 133/99 98 06/17/19 11:58 12/13/18 11:58 12/13/18 11:58 12/13/18 11:58 12/13/18 11:58 Vital Signs Reviewed: Yes Diagnostics - Vital Signs Vital Signs Temp Pulse Resp BP Pulse Ox 12/13/18 11:58 98 F 95 18 133/99 98 - Laboratory Result Diagrams: 12/13/18 12:13 12/13/18 12:13 Lab Statement: Any lab studies that have been ordered have been reviewed, and results considered in the medical decision making process. - Radiology CXR Radiology Interpretation Completed By: Radiologist Summary of Radiographic Findings: IMPRESSION: NO ACTIVE CARDIOPULMONARY DISEASE. ED provider has reviewed this report. - EKG 1203 Cardiac Rate: NL - 86 bpm EKG Rhythm: Sinus Rhythm ST Segment: Normal Ectopy: None Summary of EKG Findings: No STEMI. Chest Pain Course/Dx - Course Course Of Treatment: Mr. Dick presents with a sudden onset of a burning chest pain without accompanying symptoms. This is the same symptom he had when he had an and STEMI in March except that at that time the pain went down his left arm. He got a cath which showed small vessel disease which was unable to be stented. His initial EKG showed no acute ischemic changes this time. Chest x-ray and labs including initial troponin were within normal limits. I spoke with Dr. Figueroa who recommended admission to the hospitalist for stress test. Dr. Sterling was contacted and evaluated the patient. He wanted to go home against the advice and she got him set up for an outpatient stress test. He agreed to return if his chest pain returned. - Diagnoses Provider Diagnoses: Chest pain - Provider Notifications Discussed Care Of Patient With: Kameron Figueroa - cardio Time Discussed With Above Provider: 13:00 Instructed by Provider To: Other - Recommends admission. Discharge - Sign-Out/Discharge Documenting (check all that apply): Patient Departure - D/C Patient Received Moderate/Deep Sedation with Procedure: No - Discharge Plan Condition: Stable Disposition: HOME Patient Education Materials: Chest Pain (ED) Forms: *Work Release Referrals: Leigh Motta MD [Primary Care Provider] - 2 Days Additional Instructions: Follow up as discussed with Dr. Sterling. If you change your mind, return to the ED immediately. - Billing Disposition and Condition Condition: STABLE Disposition: Home - Attestation Statements Document Initiated by Galenibjaime: Yes Documenting Scribe: Maximiliano Urena Provider For Whom Curt is Documenting (Include Credential): Dr. Tereso Camarillo MD Scribe Attestation: I, Maximiliano Urena, scribed for Dr. Tereso Camarillo MD on 12/13/18 at 1637. Scribe Documentation Reviewed: Yes Provider Attestation: The documentation as recorded by the mangoe, Maximiliano Urena accurately reflects the service I personally performed and the decisions made by me, Dr. Tereso Camarillo MD Status of Scribe Document: Viewed Consult Consult: 1310: Consult with Dr. Sterling, hospitalist Will admit patient.
[2018-12-13 12:29] LABS: ABS Basophils 0.1 10^3/ul (0-0.2); ABS Eosinophils 0.1 10^3/ul (0-0.6); ABS Lymphocytes 2.3 10^3/ul (1.0-4.8); ABS Monocytes 0.5 10^3/ul (0-0.8); ABS Neutrophils 5.3 10^3/ul (1.5-7.7); Eosinophil % 0.6 %; Hematocrit 47 % (42-52); Hemoglobin 15.9 g/dL (14.0-18.0); Lymphocyte % 28.2 %; Mean Corpuscular HGB Conc 34 g/dL (31-36); Mean Corpuscular Hemoglobin 30 pg (27-31); Mean Corpuscular Volume 90 fL (80-94); Mean Platelet Volume 8.5 fL (7.4-10.4); Nucleated Red Blood Cells % 0.1; Platelet Count 300 10^3/uL (150-450); Red Blood Count 5.22 10^6 /uL (4.18-5.48); Red Cell Distribution Width 15 % (10-15); White Blood Count 8.1 10^3/uL (3.5-10.8)
[2018-12-13 12:35] LABS: Albumin 4.8 g/dL (3.2-5.2); Calcium 9.7 mg/dL (8.6-10.3); INR 0.97 (0.82-1.09); Potassium 4.2 mmol/L (3.5-5.0); Total Bilirubin 1.2 mg/dL (0.2-1.0)
[2018-12-13 12:41] LABS: Albumin/Globulin Ratio 1.8 (1-3); BUN/Creatinine Ratio 7.8 (8-20); EGFR African American 94.3 (>60); Globulin 2.7 g/dL (2-4); Total Protein 7.5 g/dL (6.4-8.9)
[2018-12-13 12:43] LABS: Troponin I 0.01 ng/mL (<0.04)
--- NOTE | 2018-12-13 15:35 | CONSULT ---
Subjective Date of Service: 12/13/18 Interval History: Asked by Dr. Tereso Camarillo to evaluate patient for chest pain. Mr. Dick is a 48M with h/o recent NSTEMI on full medical management, active tobacco use, who is presenting after chest pain this morning. He states that he was at work experiencing significant stress when he started to have burning substernal chest pain that did not sepideh with 2 nitros. He had his blood pressure checked and it was systolic 117. He took another nitro, which improved the pain. He came to the ER to "have a troponin checked" given his recent hospitalization. On interview, he states his CP is now gone without intervention (besides nitro this morning). He states that the CP was not exertional, pleuritic, or positional. It was worse with stress, and has improved now that he feels less stressed - he is tearful upon recounting this, stating he has a very unhealthy work environment. He denies associated SOB, diaphoresis, light headedness, palpitations. He denies change in symptoms with breakfast. He has had good adherence to home medications but is having difficultly quitting smoking. His EKG is without acute changes and his first troponin was negative. He now has no symptoms. 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; lives with Past Medical History: Findings - NSTEMI, anxiety, tobacco use Review of Systems - Measurements Intake and Output: Intake and Output Last 24 Hours 12/11/18 12/12/18 12/13/18 12/14/18 06:59 06:59 06:59 06:59 Weight 220 lb - Review of Systems Constitutional Symptoms: Negative: Weight Gain, Weight Loss, Weakness, Fatigue, Fever Dermatology: Negative: Rash HEENT: Negative: Vertigo Eyes: Negative: Change in Vision Thyroid: Negative: Cold Intolerance, Heat Intolerance, Sweatiness Pulmonary: Negative: Cough, Wheezing, Shortness of Breath Cardiology: Negative: Palpitations, Edema, Faintness, Syncope, Proximal NocturnalDyspnea , Orthopnoea Gastroenterology: Negative: Abdominal Pain, Nausea, Vomiting, Constipation, Diarrhea Genital - Urinary: Negative: Dysuria Neurology: Negative: Headache, Migraines, Change in Vision, Diplopia, Dizziness Objective Vital Signs - 8 hr 12/13/18 12/13/18 12/13/18 11:58 12:19 13:00 Temperature 98 F Pulse Rate 95 81 78 Respiratory 18 11 15 Rate Blood Pressure 133/99 (mmHg) O2 Sat by Pulse 98 95 96 Oximetry 12/13/18 12/13/18 14:00 14:54 Temperature Pulse Rate 72 Respiratory 7 19 Rate Blood Pressure 116/80 (mmHg) O2 Sat by Pulse 96 Oximetry Oxygen Devices in Use Now: None Appearance: well appearing but tearful on history; appears comfortable; alert and interactive Eyes: No Scleral Icterus Ears/Nose/Mouth/Throat: Clear Oropharnyx, Mucous Membranes Moist Neck: NL Appearance and Movements; NL JVP Respiratory: Symmetrical Chest Expansion and Respiratory Effort, Clear to Auscultation Cardiovascular: NL Sounds; No Murmurs; No JVD, RRR Abdominal: NL Sounds; No Tenderness; No Distention, No Hepatosplenomegaly Extremities: No Edema Skin: No Rash or Ulcers Neurological: Alert and Oriented x 3 Result Diagrams: 12/13/18 12:13 12/13/18 12:13 Assessment/Plan - Billing Plan By Medical Problem: 1. Chest pain, since resolved. First trop negative, EKG without concerning findings. KYLE is 2. Patient understands he is high risk for coronary events and that we prefer he stay admitted for inpatient stress test. However, as his pain has resolved, and he continues to experience significant stress over last hospital bill, he would prefer to follow up outpatient for further evaluation. He was extensively educated on return precautions. Stressed importance of smoking cessation. Patient verbalized understanding. 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
[2018-12-13 16:32] VITALS: BP 118/85
== END 2018-12-13 16:31 | disposition home or self-care (01) ==
LOC: ED 11:57
DX: R07.89 Other chest pain (principal); F17.210 Nicotine dependence, cigarettes, uncomplicated
CPT/HCPCS: 36415; 71045; 80053; 83605; 83880; 84484; 85025; 85379; 85610; 93005; 99282

== ENCOUNTER 2019-08-23 08:11 | Emergency (ER) | payer BC ==
--- NOTE | 2019-08-23 09:25 | ED ---
Upper Extremity Pain - HPI Summary HPI Summary: Patient is a 49-year-old male who presents emergency department for right mid arm injury that occurred yesterday while bowling. Patient states he was bowling yesterday and when he released the ball he felt a pop and had instant pain to his distal bicep region extending into forearm. Mild in severity. Moving her makes symptoms worse. Rest makes symptoms better. Denies numbness or tingling. Notes mild edema into the digits. - History of Current Complaint Chief Complaint: EDExtremityUpper Stated Complaint: RT ELBOW PAIN PER PT Time Seen by Provider: 08/23/19 08:17 Hx Obtained From: Patient - Allergies/Home Medications Allergies/Adverse Reactions: Allergies Allergy/AdvReac Type Severity Reaction Status Date / Time bee pollen Allergy Anaphylatic Verified 12/13/18 12:01 Shock Home Medications: Home Medications Aspirin EC TAB* [Ecotrin EC Low Dose 81 MG*] 81 mg PO DAILY #30 tab.ec 04/21/18 [Rx Confirmed 08/23/19] Ropinirole HCl 0.25 mg PO BEDTIME #30 tablet 04/21/18 [Rx Confirmed 08/23/19] Atorvastatin* [Lipitor*] 80 mg PO DAILY 12/13/18 [History Confirmed 08/23/19] Isosorbide Mononitrate ER TAB* [Imdur ER TAB*] 120 mg PO DAILY 12/13/18 [ History Confirmed 08/23/19] Lisinopril TAB* [Prinivil TAB*] 10 mg PO DAILY 12/13/18 [History Confirmed 08/23] Nitroglycerin TAB 0.4 MG* 0.4 mg SL Q5M PRN 12/13/18 [History Confirmed 08/23/19 ] Zolpidem TAB* [Ambien TAB*] 10 mg PO BEDTIME PRN MDD 1 tab 12/13/18 [History Confirmed 08/23/19] dilTIAZem HCl [Diltiazem 24Hr ER] 240 mg PO DAILY 12/13/18 [History Confirmed ] Qunol Ultra Coq10 100-150 1 cap PO DAILY 08/23/19 [History Confirmed 08/23/19] PMH/Surg Hx/FS Hx/Imm Hx Previously Healthy: Yes Endocrine/Hematology History: Denies: Hx Diabetes Cardiovascular History: Denies: Hx Hypertension Musculoskeletal History: Reports: Hx Back Problems - spinal fusion post herniated disk Sensory History: Reports: Hx Contacts or Glasses Denies: Hx Hearing Aid Opthamlomology History: Reports: Hx Contacts or Glasses Neurological History: Denies: Hx Headaches - Surgical History Surgery Procedure, Year, and Place: spinal fusion Infectious Disease History: No Infectious Disease History: Denies: Traveled Outside the [place] in Last 30 Days - Family History Known Family History: Positive: Cardiac Disease, Other - [place], Non-Contributory - Social History Occupation: Employed Full-time Lives: With Family Alcohol Use: Occasionally Substance Use Type: Reports: None Smoking Status (MU): Heavy Every Day Tobacco Smoker Type: Cigarettes - half pack/day Review of Systems Positive: Other - pain right arm Skin: Negative Neurological/Mental Status: Negative Negative: Weakness, Paresthesia, Numbness All Other Systems Reviewed And Are Negative: Yes Physical Exam Triage Information Reviewed: Yes Vital Signs On Initial Exam: Initial Vitals Temp Pulse Resp BP Pulse Ox 97.9 F 84 18 157/90 97 08/23/19 08:14 08/23/19 08:14 08/23/19 08:14 08/23/19 08:14 08/23/19 08:14 Vital Signs Reviewed: Yes Appearance: Positive: Well-Appearing - Patient sitting on bed holding right arm in no acute distress. Significant other present. Skin: Positive: Warm, Dry Head/Face: Positive: Normal Head/Face Inspection Eyes: Positive: Normal, EOMI Neck: Positive: Supple Musculoskeletal: Positive: Other - Side effects strength in right upper extremity. Good radial pulse. No bony tenderness to right arm. Pain with supination. Biceps tendon appears to be intact distally but is very painful on palpation. Neurological: Positive: Normal, CN Intact II-III Psychiatric: Positive: Affect/Mood Appropriate Procedures - Sedation Patient Received Moderate/Deep Sedation with Procedure: No Diagnostics - Vital Signs Vital Signs Temp Pulse Resp BP Pulse Ox 08/23/19 08:21 86 125/99 97 08/23/19 08:20 78 96 08/23/19 08:14 97.9 F 84 18 157/90 97 - Laboratory Lab Statement: Any lab studies that have been ordered have been reviewed, and results considered in the medical decision making process. Course/Dx - Course Course Of Treatment: Patient with acute right arm pain while bowling. No bony tenderness. Suspect tendon injury. Arm sling placed for comfort and is to be worn intermittently. Advised ice and elevation. Patient states he cannot take anti-inflammatories, to continue Tylenol for pain as directed. We'll have him follow up with orthopedics for further evaluation. To avoid heavy lifting. Patient understands and agrees with plan. - Diagnoses Differential Diagnosis/HQI/PQRI: Positive: Bursitis, Contusion, Hematoma, Strain , Sprain Provider Diagnoses: Tendon injury, Arm pain Discharge ED - Sign-Out/Discharge Documenting (check all that apply): Patient Departure - Discharge Plan Condition: Good Disposition: HOME Patient Education Materials: Tendon Rupture (ED) Forms: *Work Release Referrals: Karina Avalos MD [Medical Doctor] - Leigh Motta MD [Medical Doctor] - Additional Instructions: Please schedule an appointment with orthopedics for further evaluation of possible tendon injury Wear sling intermittently for comfort Ice and elevate arm Tylenol for pain as directed No heavy lifting Return to ER if symptoms change or worsen - Billing Disposition and Condition Condition: GOOD Disposition: Home
[2019-08-23 10:13] VITALS: BP 155/104
== END 2019-08-23 10:16 | disposition home or self-care (01) ==
LOC: ED 08:11
DX: S46.801A Unspecified injury of other muscles, fascia and tendons at shoulder and upper arm level, right arm, initial encounter (principal); X50.9XXA Other and unspecified overexertion or strenuous movements or postures, initial encounter; Y93.54 Activity, bowling; Y92.9 Unspecified place or not applicable; F17.210 Nicotine dependence, cigarettes, uncomplicated
CPT/HCPCS: 99283

== ENCOUNTER → 2019-09-02 12:35 | Day surgery (SDC) | payer BC ==
[~2019-09-02 12:35] MED LIST: Buffered Lidocaine 1% SYRIN* 1 ML/SYRINGE INTRADERM ONE; Bupivacaine 0.5%* 50 ML MDV VIAL ONE; Dexamethasone IV* 4 MG/ML 1 ML (4 MG) IV SLOW PU ONE; Dexamethasone IV* 4 MG/ML 1 ML (4 MG) ONE; DiMENhydriNATE IV* 50 MG/ML VIAL IV PUSH PRN; EPHEDrine (Pressors)* 50 MG/ML VIAL ONE; Famotidine IV* 10 MG/ML 2 ML (20 mg) IV ONE; Famotidine IV* 10 MG/ML 2 ML (20 mg) ONE; HYDROcodone/ACETAMIN 5-325 MG* 1 TAB ONE; HYDROcodone/ACETAMIN 5-325 MG* 1 TAB PO PRN; Ketorolac INJ* 30 MG/ML 1 ML VIAL ONE; Lactated Ringers 1000 ML Bag* 1,000 ML IV SCH; Lidocaine 2% PF * 5 ML VIAL ONE; Midazolam* 1 MG/ML 5 ML VIAL (5 MG) ONE; Naloxone* 0.4 MG/ML 1 ML VIAL IV PRN; Ondansetron INJ* 2 MG/ML VIAL ONE; Propofol* 10 MG/ML 20 ML BTL ONE; ceFAZolin 2 GM PREMIX in ORs 2 GM/50 ML BAG ONE; fentaNYL* 50 MCG/ML 2 ML VIAL (100 MCG VIAL) ONE; fentaNYL* 50 MCG/ML 5 ML VIAL (250 MCG VIAL) ONE; oxyCODONE/Acetamin 5/325 MG* TAB PO PRN
[2019-09-02] MEDS: fentaNYL* 50 MCG/ML 2 ML VIAL (100 MCG VIAL) IV PRN ×2 (20:03→20:15)
[2019-09-02 20:42] VITALS: BP 122/83
--- NOTE | 2019-09-04 11:42 | OP ---
OPERATIVE REPORT: DATE OF OPERATION: 09/02/19 DATE OF : 70 SURGEON: Isidro Moe MD. RISK MANAGEMENT SPECIALIST: TSERING Bowman Physician assistant professor of psychology was required for the length of the procedure for assistance with the patient's po sitioning, retraction and closure. ANESTHESIOLOGIST: Mateus Servin MD. ANESTHESIA: General anesthesia, local anesthesia using 3 cc of Marcaine 0.5% with epinephrine. PRE-OP DIAGNOSIS: Right distal biceps tendon rupture. POST-OP DIAGNOSIS: Right distal biceps tendon rupture. OPERATIVE PROCEDURE: Open right distal biceps tendon repair. ANTIBIOTICS: Ancef 2 g IV. IV FLUIDS: See Anesthesia note. [id number]-CY-[id number] TIME: 91 minutes. TOURNIQUET TIME: 94 minutes, right upper arm tourniquet set at 250 mmHg. RADIATION EXPOSURE: Mini C-arm, approximately 3 images obtained. COMPLICATIONS: None. ESTIMATED BLOOD LOSS: Minimal. SPECIMEN: None. IMPLANTS: Arthrex distal biceps set was utilized. Bicortical metal suture button as well as Biocomp osite screw 7 x 10 mm. 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 The patient had noted some soreness about the right elbow antecubital fossa for 2 weeks prior to that injury. Based on history and exam, I made the diagnosis in clinic on 08/23/19. I spoke to the patient about non-operative and operative treatment. I spoke to him about the risks and potential complications of surgery including the high postoperative incidence of lateral antebrachial cutaneous nerve symptoms. The patient opted to move forward with surgery. 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 We delayed the surgery 2 days in order to get that cardiology preoperative evaluation. DESCRIPTION OF THE PROCEDURE: In preoperative holding, the patient signed a written consent. Operat cely extremity was marked in preoperative holding. The patient was taken back to the operating room, placed supine, sedated and intubated. Hand table was applied to the stretcher or table. Tourniquet w as placed about the right upper arm, non-sterile. The right upper extremity was next prepped and luis ped. Surgical time-out was performed. Esmarch was applied and tourniquet was elevated. I should state also that MRI preoperatively confirmed the diagnosis and showed a minimum of retractio n, about 3.5 cm. I made my standard longitudinal skin incision about the proximal forearm. I started this incision at just 3 cm long. Later in the case, I extended it 2 additional centimeters proximal for a total of 5 cm. I dissected carefully with tenotomy scissors through the subcutaneous tissues. The patient had very impressive superficial veins, among the largest I have ever seen. I dissected in the appropria te interval between brachioradialis and pronator teres. I identified the arterial and venous leash o f Yared. I used Vicryl 3-0 ties and tied off multiple vessels. I used bipolar for a small leak just after this point. Otherwise, our field was entirely dry during the procedure. The patient's forearm was hypersupinated, retractors were placed and I identified the bicipital tuber osity to proximal radius. Debridement performed. I next identified the distal biceps. I anticipated that the distal biceps would be scarred down as this is often the case when the retract ion is minimal like this on preoperative MRI imaging. I slowly and carefully followed the biceps from proximal to distal debriding about it circumferential ly. As the biceps went through a network of veins, superficial and deep, I had to be very careful wi th my dissection. This took some time which meant this case was longer than most. Eventually, I debrided the biceps tendon off of the bone and other soft tissue attachments. I next prepared the distal biceps tendon. It was noticeable for being much more thick and robust cliff n average. I removed the very tendonitic distal end of it. I placed multiple stitches at least 4 to 5 in it with a FiberLoop suture. I sized it. I next placed my button. I returned to the proximal radius. Retractors placed. I placed my pin bicortically. I brought mini C-arm in and obtained an image that showed excellent placement of the pin. I next reamed unicortica lly an 8 mm tunnel. Irrigation and removal of all bone debris. I next placed my button bicortically and flipped it. I pulled the tendon into the tunnel. This required a significant amount of elbow fl exion, perhaps 70 degrees to accomplish. The tendon suck nicely down into the tunnel. I tied a knot using an arthroscopic knot pusher. I next placed my tenodesis screw over a suture and tied another stitch. Irrigation. With the elbow flexed, we closed the subcutaneous tissue with buried deep simpl e stitches using Vicryl 3-0 suture. Subcuticular closure was then performed with a running stitch us ing Monocryl 3-0 suture. Local anesthetic was injected. Mastisol, Steri-Strips. 4x4s. Sterile Webr il. Non-sterile Webril. The elbow was then splinted with a posterior slab followed by a forearm sug ar tong with the elbow flexed 90 degrees and the forearm in some supination. A sling was applied. DISPOSITION: The patient was awakened, extubated and transferred to the PACU. The patient will rece cely Percocet as needed for pain control. He will be on a short course of Keflex as infection prophyl axis. The patient currently has an appointment scheduled for 10 to 14 days postoperatively. I told him what I tell all of my distal biceps and triceps tendon repairs. He can come to the office sooner than that in the first week postoperative. If he does, we will do a wound check, place him in a One -Step splint and sent him immediately to [facility] where he will be placed in an elbow brace, locked at 90 degrees of flexion and soon after the patient will start physical therapy according to my protocol . [id number]/[facility] #: [id number]
== END | disposition home or self-care (01) ==
LOC: OR 12:35
PROVIDERS: ATTEND Orthopaedic Surgery
DX: S46.211A Strain of muscle, fascia and tendon of other parts of biceps, right arm, initial encounter (principal); X50.0XXA Overexertion from strenuous movement or load, initial encounter; Y93.54 Activity, bowling; Y92.39 Other specified sports and athletic area as the place of occurrence of the external cause; F17.210 Nicotine dependence, cigarettes, uncomplicated; I25.2 Old myocardial infarction; E78.5 Hyperlipidemia, unspecified; I10 Essential (primary) hypertension
CPT/HCPCS: 76000; C1713; J0690; J1100; J1885; J2250; J2405; J2704; J3010; J3490

== ENCOUNTER 2021-02-07 10:52 | Observation (INO) ==
[~2021-02-07 10:52] MED LIST changes: +Buffered Lidocaine 1% SYRIN 1 ml INTRADERM ONE; -Buffered Lidocaine 1% SYRIN* 1 ML/SYRINGE INTRADERM ONE; -Bupivacaine 0.5%* 50 ML MDV VIAL ONE; -Dexamethasone IV* 4 MG/ML 1 ML (4 MG) IV SLOW PU ONE; -Dexamethasone IV* 4 MG/ML 1 ML (4 MG) ONE; -DiMENhydriNATE IV* 50 MG/ML VIAL IV PUSH PRN; -EPHEDrine (Pressors)* 50 MG/ML VIAL ONE; +Famotidine IV 10 MG/ML 2 ml VIAL (20 mg) IV ONE; -Famotidine IV* 10 MG/ML 2 ML (20 mg) IV ONE; -Famotidine IV* 10 MG/ML 2 ML (20 mg) ONE; -HYDROcodone/ACETAMIN 5-325 MG* 1 TAB ONE; -HYDROcodone/ACETAMIN 5-325 MG* 1 TAB PO PRN; -Ketorolac INJ* 30 MG/ML 1 ML VIAL ONE; -Lactated Ringers 1000 ML Bag* 1,000 ML IV SCH; +Lactated Ringers 1000 ml BAG 1,000 ML IV SCH; -Lidocaine 2% PF * 5 ML VIAL ONE; -Midazolam* 1 MG/ML 5 ML VIAL (5 MG) ONE; -Naloxone* 0.4 MG/ML 1 ML VIAL IV PRN; -Ondansetron INJ* 2 MG/ML VIAL ONE; -Propofol* 10 MG/ML 20 ML BTL ONE; -ceFAZolin 2 GM PREMIX in ORs 2 GM/50 ML BAG ONE; -fentaNYL* 50 MCG/ML 2 ML VIAL (100 MCG VIAL) ONE; -fentaNYL* 50 MCG/ML 5 ML VIAL (250 MCG VIAL) ONE; -oxyCODONE/Acetamin 5/325 MG* TAB PO PRN
[2021-02-07] MEDS ORDERED: Famotidine IV 10 MG/ML 2 ml VIAL (20 mg) ONE (11:08)
[2021-02-07] MEDS ORDERED: ceFAZolin 2 GM in NS PREMIX 2 GM/100 ML BAG IVPB ONE (11:08)
[2021-02-07] MEDS ORDERED: Midazolam 2 mg/2 ml VIAL 1 mg/ml 2 ml VIAL (2 mg) ONE (12:11)
[2021-02-07] MEDS ORDERED: Ondansetron 4 mg VIAL 2 MG/ML 2 ml VIAL ONE (12:11)
[2021-02-07] MEDS ORDERED: Ketamine HCL 50 mg/ml 10 ml VIAL (500 MG) ONE (12:11)
[2021-02-07] MEDS ORDERED: Lidocaine 2% PF 5 ML VIAL ONE (12:11)
[2021-02-07] MEDS ORDERED: Propofol 10 MG/ML 20 ML BTL ONE (12:11)
[2021-02-07] MEDS ORDERED: Rocuronium 50 mg VIAL 10 mg/ml 5 ml VIAL (50 mg) ONE (12:11)
[2021-02-07] MEDS ORDERED: Dexamethasone IV 4 MG/ML VIAL 1 ml VIAL ONE (12:11)
[2021-02-07] MEDS ORDERED: fentaNYL 250 mcg/5 ml 50 MCG/ML 5 ml VIAL (250 MCG) ONE (12:11)
[2021-02-07] MEDS ORDERED: ROPIVACAINE 5 MG/ML 30 ML BTL (0.5%) ONE ×2 (13:28)
[2021-02-07] MEDS ORDERED: Levalbuterol 0.63MG/3ML NEB UNIT OF USE INH PRN (14:30)
[2021-02-07] MEDS ORDERED: Ondansetron 4 mg VIAL 2 MG/ML 2 ml VIAL IV PRN ×2 (14:30→14:33)
[2021-02-07] MEDS ORDERED: Naloxone 0.4 mg VIAL 0.4 mg/ml 1 ml VIAL IV PRN (14:30)
[2021-02-07] MEDS ORDERED: DiMENhydriNATE IV 50 mg/ml 1 ml VIAL IV PUSH PRN (14:30)
[2021-02-07] MEDS ORDERED: Acetaminophen IV 1 GM/100ML 100 ML IV ONE (14:32)
[2021-02-07] MEDS ORDERED: Lactulose 30 ml UDC PO PRN (14:33)
[2021-02-07] MEDS ORDERED: Magnesium Hydroxide LIQ 30 ML UDC PO PRN (14:33)
[2021-02-07] MEDS ORDERED: Ondansetron ODT 4 mg TAB 4 MG TAB PO PRN (14:33)
[2021-02-07] MEDS ORDERED: diPHENhydraMINE 25 mg TAB PO PRN (14:33)
[2021-02-07] MEDS ORDERED: Morphine 2 MG/ML SYRINGE IV PRN (14:33)
[2021-02-07] MEDS ORDERED: diPHENhydraMINE IV 50 MG/ML 1 ml VIAL (BENADRYL) IV PRN (14:33)
[2021-02-07] MEDS ORDERED: HYDROmorphone 1 MG/1 ML SYRINGE ONE (14:56)
[2021-02-07] MEDS ORDERED: fentaNYL 100 mcg/2 ml 50 MCG/ML VIAL ONE (16:48)
[2021-02-07] MEDS: fentaNYL 100 mcg/2 ml 50 MCG/ML VIAL IV PRN ×2 (16:51→17:04)
[2021-02-07] MEDS: Lactated Ringers 1000 ml BAG 1,000 ML IV SCH (18:35)
[2021-02-07] MEDS: Magnesium Hydroxide LIQ 30 ML UDC PO SCH (22:30)
[2021-02-07] MEDS: ceFAZolin 1 GM ADVAN 1 GM in NS 0.9% 50 ML 50 ML IVPB SCH (22:30)
[2021-02-08] MEDS: ceFAZolin 1 GM ADVAN 1 GM in NS 0.9% 50 ML 50 ML IVPB SCH (05:07)
[2021-02-08] MEDS: Lactated Ringers 1000 ml BAG 1,000 ML IV SCH (05:08)
[2021-02-08 06:51] LABS: Hematocrit 36 % (42-52); Hemoglobin 12.6 g/dL (14.0-18.0); Mean Platelet Volume 8.8 fL (7.4-10.4); Platelet Count 243 10^3/uL (150-450)
[2021-02-08 07:16] LABS: Calcium 8.5 mg/dL (8.6-10.3); EGFR African American 94.2 (>60); EGFR Non-African American 77.9 (>60); Potassium 4.4 mmol/L (3.5-5.0)
[2021-02-08 07:54] VITALS: BP 130/80
[2021-02-08] MEDS: Magnesium Hydroxide LIQ 30 ML UDC PO SCH (08:34)
[2021-02-08] MEDS ORDERED: Aspirin EC 81 mg TAB.EC (enteric coated) PO SCH (09:00)
[2021-02-08] MEDS ORDERED: Isosorbide Mononit ER 60mg TAB PO SCH (09:00)
[2021-02-08] MEDS ORDERED: Vitamin THERAPEUTIC TAB PO SCH (09:00)
== END 2021-02-08 12:15 | disposition home or self-care (01) ==
LOC: SSU 10:52 → OR 10:52
PROVIDERS: ADMIT Orthopaedic Surgery Adult Reconstructive Orthopaedic Surgery; ATTEND Orthopaedic Surgery Adult Reconstructive Orthopaedic Surgery

== ENCOUNTER 2024-06-02 13:19 | Inpatient (IN) ==
[2024-06-02 14:37] LABS: ABS Basophils 0.1 10^3/uL (0.0-0.1); ABS Monocytes 0.6 10^3/uL (0.0-1.1); ABS Neutrophils 5.2 10^3/uL (1.5-7.6); Eosinophil % 0.2 %; Hematocrit 42.3 % (38-53); Hemoglobin 14.7 g/dL (13.2-16.3); Lymphocyte % 14.6 %; Mean Corpuscular Hgb Conc 34.8 g/dL (31-36); Mean Corpuscular Volume 97.6 fL (80-97); Mean Platelet Volume 9.5 fL (7.5-11.2); Nucleated Red Blood Cells % 0.1 %/100WBC (0.0-0.8); Platelet Count 166 10^3/uL (150-450); Red Blood Count 4.33 10^6/uL (4.06-5.63); Red Cell Distribution Width 15.3 % (12-17); White Blood Count 6.9 10^3/uL (3.6-10.2)
[2024-06-02 15:08] LABS: ALT 52 U/L (7-52); AST 232 U/L (13-39); Albumin 3.2 g/dL (3.2-5.2); Albumin/Globulin Ratio 0.7 (1-3); Alcohol, S 373 mg/dL (<13); Alkaline Phosphatase 428 U/L (35-149); Anion Gap 8 mmol/L (2-16); Blood Urea Nitrogen 4 mg/dL (6-24); C Reactive Protein 19.68 mg/L (<8.01); CO2 Carbon Dioxide 29 mmol/L (22-32); Chloride 100 mmol/L (101-111); Creatinine, Serum 0.55 mg/dL (0.67-1.17); Globulin 4.4 g/dL (2-4); Glucose 102 mg/dL (70-100); Potassium 3.6 mmol/L (3.5-5.0); Sodium 137 mmol/L (135-145); Total Bilirubin 5.6 mg/dL (0.2-1.0); Total Protein 7.6 g/dL (6.4-8.9); eGFR CKD-EPI 117.8 (>60)
[2024-06-02 15:16] LABS: TSH Ultra Thyroid Stim Horm 1.56 mcIU/mL (0.34-5.60)
[2024-06-02 15:28] LABS: Vitamin B12 > 1450 pg/mL (180-914)
[2024-06-02 15:55] LABS: Folate 6.88 ng/mL (5.90-24.80)
[2024-06-02 17:17] LABS: Erythrocyte Sed Rate 28 mm/Hr (0-19)
[2024-06-02] MEDS: Thiamine 100 MG/ML 2 ml VIAL (200 mg) IM ONE (17:42)
[2024-06-02 18:37] LABS: Creatine Kinase 292 U/L (10-223); Direct Bilirubin 2.6 mg/dL (0.03-0.18); GGTP 1464 U/L (9-64.0)
[2024-06-02] MEDS ORDERED: Enoxaparin 40 MG/0.4 ML SYR SUBCUT SCH (21:00)
[2024-06-02] MEDS: LORazepam 2 mg VIAL 1 ml IV PUSH SCH (21:06)
[2024-06-02 21:15] LABS: Urine Appearance Clear; Urine Bilirubin 2+ (Negative); Urine Blood Negative (Negative); Urine Color Dark-Yellow; Urine Glucose Negative (Negative); Urine Ketones 1+ (Negative); Urine Nitrite Negative (Negative); Urine Protein 1+ (>=30 mg/dL) (Negative); Urine Specific Gravity 1.023 (1.002-1.030); Urine Urobilinogen 3+ (Negative)
[2024-06-02 21:16] LABS: Urine Bacteria Absent /HPF (Absent); Urine Red Blood Cell Trace(0-2/hpf) /HPF (0-Trace); Urine White Blood Cell Trace(0-5/hpf) /HPF (0-Trace)
[2024-06-02] MEDS: Gadoteridol (CONTRAST) 279.3 MG/ML 10 ML IV ONE (22:55)
[2024-06-03 05:26] LABS: ABS Basophils 0.1 10^3/uL (0.0-0.1); ABS Eosinophils 0.1 10^3/uL (0.0-0.5); ABS Lymphocytes 1.4 10^3/uL (1.0-4.8); ABS Monocytes 0.7 10^3/uL (0.0-1.1); ABS Neutrophils 4.1 10^3/uL (1.5-7.6); Hematocrit 35.3 % (38-53); Hemoglobin 12.1 g/dL (13.2-16.3); Mean Corpuscular Hemoglobin 33.5 pg (27-33); Mean Corpuscular Hgb Conc 34.3 g/dL (31-36); Mean Corpuscular Volume 97.5 fL (80-97); Mean Platelet Volume 9.7 fL (7.5-11.2); Platelet Count 128 10^3/uL (150-450); Red Blood Count 3.62 10^6/uL (4.06-5.63); Red Cell Distribution Width 15.1 % (12-17); White Blood Count 6.4 10^3/uL (3.6-10.2)
[2024-06-03 05:39] LABS: INR 1.49 (0.85-1.14)
[2024-06-03 06:21] LABS: Albumin 2.4 g/dL (3.2-5.2); Albumin/Globulin Ratio 0.7 (1-3); Calcium 7.2 mg/dL (8.6-10.3); Creatinine, Serum 0.53 mg/dL (0.67-1.17); Direct Bilirubin 2.5 mg/dL (0.03-0.18); Globulin 3.6 g/dL (2-4); Indirect Bilirubin 2.9 mg/dL (0.3-1.0); Magnesium 1.6 mg/dL (1.9-2.7); Potassium 3.7 mmol/L (3.5-5.0); Total Bilirubin 5.4 mg/dL (0.2-1.0); eGFR CKD-EPI 119.1 (>60)
[2024-06-03 06:40] LABS: Ferritin 462.7 ng/mL (24-336)
[2024-06-03 07:03] LABS: Hepatitis B Surface Antigen Nonreactive (Nonreactive)
[2024-06-03 07:08] LABS: Hepatitis A Ab IgM Negative (Negative); Hepatitis B Core IgM Nonreactive (Nonreactive)
[2024-06-03 07:20] LABS: Hepatitis C Antibody Negative (Negative)
[2024-06-03] MEDS: Magnesium Sulf 4 GM/100 ML IV 4,000 MG/100 ML BAG IVPB ONE (12:52)
[2024-06-03] MEDS: NS 0.9% 1000 ml BAG 1,000 ML IV SCH (12:52)
[2024-06-03] MEDS: Multivitamins/Minerals TAB PO SCH (14:38)
[2024-06-03] MEDS: Potassium Chloride LIQUID 20 MEQ/15 ML LIQUID PO ONE (14:59)
[2024-06-03 16:36] LABS: Body Fluid Source Cerebral Spinal
[2024-06-03 17:07] LABS: Body Fluid Appearance Clear; Body Fluid Color Colorless; CSF Tube # 4
[2024-06-03 17:08] LABS: CSF Glucose 54 mg/dL (40-70)
[2024-06-03] MEDS ORDERED: Lorazepam PYXIS KEY PRN (18:13)
[2024-06-03 18:36] LABS: CSF Body Fluid WBC 0 /mcL
[2024-06-03] MEDS: Enoxaparin 40 MG/0.4 ML SYR SUBCUT SCH (20:27)
[2024-06-04 07:17] LABS: ABS Basophils 0.1 10^3/uL (0.0-0.1); ABS Lymphocytes 0.9 10^3/uL (1.0-4.8); ABS Monocytes 0.9 10^3/uL (0.0-1.1); ABS Neutrophils 6.2 10^3/uL (1.5-7.6); ABS Nucleated RBC 0.02 10^3/ul; Eosinophil % 0.4 %; Hematocrit 35.2 % (38-53); Hemoglobin 12.4 g/dL (13.2-16.3); Lymphocyte % 10.8 %; Mean Corpuscular Hemoglobin 34.1 pg (27-33); Mean Corpuscular Hgb Conc 35.1 g/dL (31-36); Mean Corpuscular Volume 97.1 fL (80-97); Mean Platelet Volume 9.9 fL (7.5-11.2); Nucleated Red Blood Cells % 0.2 %/100WBC (0.0-0.8); Platelet Count 111 10^3/uL (150-450); Red Blood Count 3.63 10^6/uL (4.06-5.63); Red Cell Distribution Width 14.8 % (12-17); White Blood Count 8.1 10^3/uL (3.6-10.2)
[2024-06-04 07:36] LABS: INR 1.51 (0.85-1.14)
[2024-06-04 07:46] LABS: Albumin 2.5 g/dL (3.2-5.2); Albumin/Globulin Ratio 0.7 (1-3); Calcium 7.2 mg/dL (8.6-10.3); Creatinine, Serum 0.67 mg/dL (0.67-1.17); Globulin 3.7 g/dL (2-4); Magnesium 2.2 mg/dL (1.9-2.7); Potassium 4.1 mmol/L (3.5-5.0); Total Bilirubin 10.2 mg/dL (0.2-1.0); Total Protein 6.2 g/dL (6.4-8.9)
[2024-06-04] MEDS: NS 0.9% 1000 ml BAG 1,000 ML IV SCH (14:18)
[2024-06-04 16:32] LABS: Protime (Maddrey) 17.2 seconds (9.5-12.8)
[2024-06-04 16:48] LABS: Albumin 2.7 g/dL (3.2-5.2); Albumin/Globulin Ratio 0.7 (1-3); Calcium 7.4 mg/dL (8.6-10.3); Creatinine, Serum 0.66 mg/dL (0.67-1.17); Globulin 3.7 g/dL (2-4); Potassium 4.3 mmol/L (3.5-5.0); Total Bilirubin 11.4 mg/dL (0.2-1.0); Total Protein 6.4 g/dL (6.4-8.9); eGFR CKD-EPI 111.5 (>60)
[2024-06-04 16:58] LABS: Total Bilirubin 11.4 mg/dL (0.2-1.0)
[2024-06-04] MEDS: Polyethylene Glycol 3350 17 GM PACKET PO ONE (18:18)
[2024-06-04] MEDS: Senna TAB 8.6 mg TAB PO SCH (20:24)
[2024-06-05 07:43] LABS: ABS Lymphocytes 0.8 10^3/uL (1.0-4.8); ABS Monocytes 0.7 10^3/uL (0.0-1.1); ABS Neutrophils 6.9 10^3/uL (1.5-7.6); ABS Nucleated RBC 0.01 10^3/ul; Hematocrit 38.1 % (38-53); Lymphocyte % 9.1 %; Mean Corpuscular Hgb Conc 34.2 g/dL (31-36); Mean Corpuscular Volume 99.5 fL (80-97); Mean Platelet Volume 9.9 fL (7.5-11.2); Nucleated Red Blood Cells % 0.1 %/100WBC (0.0-0.8); Platelet Count 134 10^3/uL (150-450); Red Blood Count 3.83 10^6/uL (4.06-5.63); Red Cell Distribution Width 15.1 % (12-17); White Blood Count 8.3 10^3/uL (3.6-10.2)
[2024-06-05 07:56] LABS: INR 1.6 (0.85-1.14)
[2024-06-05 08:30] LABS: Albumin 2.5 g/dL (3.2-5.2); Albumin/Globulin Ratio 0.7 (1-3); Calcium 7.2 mg/dL (8.6-10.3); Creatinine, Serum 0.71 mg/dL (0.67-1.17); Globulin 3.8 g/dL (2-4); Potassium 4.6 mmol/L (3.5-5.0); Total Bilirubin 11.4 mg/dL (0.2-1.0); Total Protein 6.3 g/dL (6.4-8.9)
[2024-06-05] MEDS: Polyethylene Glycol 3350 17 GM PACKET PO SCH (08:45)
[2024-06-05] MEDS ORDERED: D5W 1000 ml BAG 850 ML with Sodium Bicarb 8.4% Vial 50 ML 150 MEQ IV SCH (10:15)
[2024-06-05] MEDS: Sodium Bicarb 8.4% Vial 50 ML 150 MEQ in D5W 1000 ml BAG 850 ML IV SCH (14:32)
[2024-06-05] MEDS: Lactulose 30 ml UDC PO SCH (16:11)
[2024-06-05 16:19] LABS: Calcium 7.6 mg/dL (8.6-10.3); Creatinine, Serum 0.62 mg/dL (0.67-1.17); Potassium 4.7 mmol/L (3.5-5.0); eGFR CKD-EPI 113.6 (>60)
[2024-06-05 23:03] LABS: Calcium 7.5 mg/dL (8.6-10.3); Creatinine, Serum 0.64 mg/dL (0.67-1.17); Potassium 3.9 mmol/L (3.5-5.0); eGFR CKD-EPI 112.5 (>60)
[2024-06-06] MEDS ORDERED: Sodium Bicarb 8.4% Vial 50 ML 150 MEQ in D5W 1000 ml BAG 850 ML IV SCH (01:30)
[2024-06-06] MEDS: Sodium Bicarb 8.4% Vial 50 ML 150 MEQ in D5W 1000 ml BAG 850 ML IV SCH (01:47)
[2024-06-06 06:28] LABS: ABS Basophils 0.1 10^3/uL (0.0-0.1); ABS Eosinophils 0.1 10^3/uL (0.0-0.5); ABS Lymphocytes 1.3 10^3/uL (1.0-4.8); ABS Neutrophils 6.8 10^3/uL (1.5-7.6); ABS Nucleated RBC 0.02 10^3/ul; Eosinophil % 0.6 %; Hematocrit 36.2 % (38-53); Hemoglobin 12.6 g/dL (13.2-16.3); Lymphocyte % 13.9 %; Mean Corpuscular Hemoglobin 34.1 pg (27-33); Mean Corpuscular Hgb Conc 34.8 g/dL (31-36); Mean Corpuscular Volume 97.8 fL (80-97); Mean Platelet Volume 9.6 fL (7.5-11.2); Nucleated Red Blood Cells % 0.2 %/100WBC (0.0-0.8); Platelet Count 146 10^3/uL (150-450); Red Cell Distribution Width 14.8 % (12-17); White Blood Count 9.2 10^3/uL (3.6-10.2)
[2024-06-06 06:31] LABS: INR 1.46 (0.85-1.14)
[2024-06-06 06:55] LABS: Albumin 2.4 g/dL (3.2-5.2); Albumin/Globulin Ratio 0.6 (1-3); Calcium 7.3 mg/dL (8.6-10.3); Creatinine, Serum 0.58 mg/dL (0.67-1.17); Globulin 3.9 g/dL (2-4); Magnesium 1.8 mg/dL (1.9-2.7); Potassium 3.3 mmol/L (3.5-5.0); Total Bilirubin 9.5 mg/dL (0.2-1.0); Total Protein 6.3 g/dL (6.4-8.9); eGFR CKD-EPI 115.9 (>60)
[2024-06-06] MEDS: Magnesium Sulfate 2 gm BAG 2 GM/50 ML BAG IVPB ONE (09:48)
[2024-06-06] MEDS: Lactated Ringers 1000 ml BAG 1,000 ML IV SCH (11:25)
[2024-06-06] MEDS: KCL 10 MEQ/50 ML IVPREMIX 10 MEQ/50 ML BAG IV SCH (11:29)
[2024-06-07 06:33] LABS: ABS Basophils 0.1 10^3/uL (0.0-0.1); ABS Lymphocytes 1.1 10^3/uL (1.0-4.8); ABS Monocytes 1.1 10^3/uL (0.0-1.1); ABS Neutrophils 5.9 10^3/uL (1.5-7.6); ABS Nucleated RBC 0.01 10^3/ul; Eosinophil % 0.1 %; Hematocrit 37.7 % (38-53); Hemoglobin 13.1 g/dL (13.2-16.3); Mean Corpuscular Hgb Conc 34.8 g/dL (31-36); Mean Corpuscular Volume 97.6 fL (80-97); Nucleated Red Blood Cells % 0.1 %/100WBC (0.0-0.8); Platelet Count 149 10^3/uL (150-450); Red Blood Count 3.87 10^6/uL (4.06-5.63); Red Cell Distribution Width 14.6 % (12-17); White Blood Count 8.1 10^3/uL (3.6-10.2)
[2024-06-07 07:03] LABS: INR 1.54 (0.85-1.14)
[2024-06-07 07:33] LABS: Albumin 2.5 g/dL (3.2-5.2); Albumin/Globulin Ratio 0.6 (1-3); Calcium 7.4 mg/dL (8.6-10.3); Creatinine, Serum 0.57 mg/dL (0.67-1.17); Globulin 3.9 g/dL (2-4); Magnesium 1.9 mg/dL (1.9-2.7); Potassium 3.3 mmol/L (3.5-5.0); Total Bilirubin 9.8 mg/dL (0.2-1.0); Total Protein 6.4 g/dL (6.4-8.9); eGFR CKD-EPI 116.5 (>60)
[2024-06-07 11:02] LABS: Direct Bilirubin 5.4 mg/dL (0.03-0.18); Indirect Bilirubin 4.4 mg/dL (0.3-1.0)
[2024-06-07 15:07] LABS: CSF Oligoclonal Bands 4 bands; Oligoclonal Proteins Interpret 0 bands (<2); Serum Oligoclonal Bands 4 bands
[2024-06-07] MEDS: Lactulose 30 ml UDC PO SCH (15:30)
[2024-06-08 03:45] LABS: Pyridoxal 5-Phosphate (PLP), P 3 mcg/L (5-50)
[2024-06-08 06:27] LABS: ABS Lymphocytes 1.2 10^3/uL (1.0-4.8); ABS Monocytes 1.2 10^3/uL (0.0-1.1); ABS Neutrophils 5.7 10^3/uL (1.5-7.6); Eosinophil % 0.6 %; Hematocrit 36.4 % (38-53); Hemoglobin 12.7 g/dL (13.2-16.3); Lymphocyte % 14.3 %; Mean Corpuscular Hemoglobin 34.4 pg (27-33); Mean Corpuscular Hgb Conc 34.9 g/dL (31-36); Mean Corpuscular Volume 98.5 fL (80-97); Mean Platelet Volume 9.5 fL (7.5-11.2); Platelet Count 143 10^3/uL (150-450); Red Cell Distribution Width 14.8 % (12-17); White Blood Count 8.2 10^3/uL (3.6-10.2)
[2024-06-08 06:31] LABS: INR 1.59 (0.85-1.14)
[2024-06-08 06:55] LABS: Albumin 2.5 g/dL (3.2-5.2); Albumin/Globulin Ratio 0.7 (1-3); Calcium 7.5 mg/dL (8.6-10.3); Creatinine, Serum 0.58 mg/dL (0.67-1.17); Globulin 3.8 g/dL (2-4); Magnesium 1.9 mg/dL (1.9-2.7); Potassium 3.2 mmol/L (3.5-5.0); Total Bilirubin 9.8 mg/dL (0.2-1.0); Total Protein 6.3 g/dL (6.4-8.9); eGFR CKD-EPI 115.9 (>60)
[2024-06-08] MEDS: Magnesium Sulfate IV 1GM/100ML 1 GM/100 ML BAG IV ONE (09:40)
[2024-06-08] MEDS: Potassium Chloride LIQUID 20 MEQ/15 ML LIQUID PO ONE (10:11)
[2024-06-08] MEDS: KCL 10 MEQ/50 ML IVPREMIX 10 MEQ/50 ML BAG IV SCH (10:16)
[2024-06-08] MEDS: NS 0.9% 1000 ml BAG 1,000 ML IV SCH (11:17)
[2024-06-09 06:04] LABS: ABS Eosinophils 0.1 10^3/uL (0.0-0.5); ABS Lymphocytes 1.4 10^3/uL (1.0-4.8); ABS Monocytes 1.4 10^3/uL (0.0-1.1); ABS Neutrophils 5.2 10^3/uL (1.5-7.6); ABS Nucleated RBC 0.01 10^3/ul; Hematocrit 39.2 % (38-53); Hemoglobin 12.8 g/dL (13.2-16.3); Lymphocyte % 17.8 %; Mean Corpuscular Hemoglobin 32.1 pg (27-33); Mean Corpuscular Hgb Conc 32.7 g/dL (31-36); Mean Platelet Volume 9.1 fL (7.5-11.2); Nucleated Red Blood Cells % 0.1 %/100WBC (0.0-0.8); Platelet Count 241 10^3/uL (150-450); White Blood Count 8.2 10^3/uL (3.6-10.2)
[2024-06-09 06:15] LABS: INR 1.54 (0.85-1.14)
[2024-06-09 06:39] LABS: Albumin 2.6 g/dL (3.2-5.2); Albumin/Globulin Ratio 0.7 (1-3); Calcium 7.4 mg/dL (8.6-10.3); Creatinine, Serum 0.62 mg/dL (0.67-1.17); Globulin 3.8 g/dL (2-4); Magnesium 1.9 mg/dL (1.9-2.7); Potassium 3.2 mmol/L (3.5-5.0); Total Protein 6.4 g/dL (6.4-8.9); eGFR CKD-EPI 113.6 (>60)
[2024-06-09] MEDS: KCL 10 MEQ/50 ML IVPREMIX 10 MEQ/50 ML BAG IV SCH (11:12)
[2024-06-09] MEDS: Magnesium Sulfate 2 gm BAG 2 GM/50 ML BAG IVPB ONE (11:12)
[2024-06-10 06:15] LABS: ABS Basophils 0.1 10^3/uL (0.0-0.1); ABS Eosinophils 0.1 10^3/uL (0.0-0.5); ABS Lymphocytes 1.2 10^3/uL (1.0-4.8); ABS Neutrophils 5.1 10^3/uL (1.5-7.6); Eosinophil % 1.1 %; Hematocrit 38.4 % (38-53); Hemoglobin 13.1 g/dL (13.2-16.3); Mean Corpuscular Hemoglobin 33.9 pg (27-33); Mean Corpuscular Volume 99.6 fL (80-97); Mean Platelet Volume 9.9 fL (7.5-11.2); Platelet Count 164 10^3/uL (150-450); Red Blood Count 3.86 10^6/uL (4.06-5.63); Red Cell Distribution Width 15.2 % (12-17); White Blood Count 7.4 10^3/uL (3.6-10.2)
[2024-06-10 06:38] LABS: INR 1.53 (0.85-1.14)
[2024-06-10 06:44] LABS: Albumin 2.6 g/dL (3.2-5.2); Albumin/Globulin Ratio 0.7 (1-3); Calcium 7.4 mg/dL (8.6-10.3); Creatinine, Serum 0.63 mg/dL (0.67-1.17); Globulin 3.7 g/dL (2-4); Potassium 3.2 mmol/L (3.5-5.0); Total Bilirubin 11.3 mg/dL (0.2-1.0); Total Protein 6.3 g/dL (6.4-8.9)
[2024-06-10] MEDS: KCL 10 MEQ/50 ML IVPREMIX 10 MEQ/50 ML BAG IV SCH (08:41)
[2024-06-10] MEDS: Potassium Chloride LIQUID 20 MEQ/15 ML LIQUID PO ONE (08:53)
[2024-06-10 11:25] LABS: Phosphorus 2.8 mg/dL (2.5-5.0)
[2024-06-10 18:18] LABS: AGNA-1, CSF Negative (Negative); Amphiphysin Ab, CSF Negative (Negative); CRMP-5-IgG, CSF Negative (Negative); IFA Notes None.; PCA-1, CSF Negative (Negative); PCA-2, CSF Negative (Negative); PCA-Tr, CSF Negative (Negative)
[2024-06-10] MEDS ORDERED: Lorazepam PYXIS KEY PRN (19:50)
[2024-06-10] MEDS: LORazepam 2 mg VIAL 1 ml IV PUSH ONE (20:01)
[2024-06-11 07:43] LABS: INR 1.56 (0.85-1.14)
[2024-06-11 07:50] LABS: Hematocrit 38.6 % (38-53); Hemoglobin 13.5 g/dL (13.2-16.3); Mean Corpuscular Hemoglobin 34.8 pg (27-33); Mean Corpuscular Hgb Conc 34.9 g/dL (31-36); Mean Corpuscular Volume 99.6 fL (80-97); Red Blood Count 3.87 10^6/uL (4.06-5.63); Red Cell Distribution Width 14.8 % (12-17); White Blood Count 7.9 10^3/uL (3.6-10.2)
[2024-06-11 08:01] LABS: Albumin 2.6 g/dL (3.2-5.2); Albumin/Globulin Ratio 0.7 (1-3); Calcium 7.6 mg/dL (8.6-10.3); Creatinine, Serum 0.65 mg/dL (0.67-1.17); Globulin 3.7 g/dL (2-4); Magnesium 1.8 mg/dL (1.9-2.7); Phosphorus 2.3 mg/dL (2.5-5.0); Potassium 3.4 mmol/L (3.5-5.0); Total Bilirubin 11.1 mg/dL (0.2-1.0); Total Protein 6.3 g/dL (6.4-8.9)
[2024-06-11 08:20] LABS: ABS Basophils 0.1 10^3/uL (0.0-0.1); ABS Eosinophils 0.1 10^3/uL (0.0-0.5); ABS Lymphocytes 1.2 10^3/uL (1.0-4.8); ABS Monocytes 1.1 10^3/uL (0.0-1.1); ABS Neutrophils 5.4 10^3/uL (1.5-7.6); Eosinophil % 0.8 %; Lymphocyte % 14.9 %; Mean Platelet Volume 9.8 fL (7.5-11.2); Platelet Count 164 10^3/uL (150-450)
[2024-06-11] MEDS: Magnesium Sulfate 2 gm BAG 2 GM/50 ML BAG IVPB ONE (09:52)
[2024-06-11] MEDS: Lactulose 30 ml UDC PO SCH (10:41)
[2024-06-11] MEDS: KCL 10 MEQ/50 ML IVPREMIX 10 MEQ/50 ML BAG IV SCH (11:27)
[2024-06-12 07:17] LABS: Hematocrit 39.4 % (38-53); Hemoglobin 13.6 g/dL (13.2-16.3); Mean Corpuscular Hemoglobin 34.9 pg (27-33); Mean Corpuscular Hgb Conc 34.6 g/dL (31-36); Mean Corpuscular Volume 100.9 fL (80-97); Red Blood Count 3.91 10^6/uL (4.06-5.63); Red Cell Distribution Width 15.1 % (12-17); White Blood Count 7.9 10^3/uL (3.6-10.2)
[2024-06-12 07:18] LABS: INR 1.53 (0.85-1.14)
[2024-06-12 08:03] LABS: ABS Basophils 0.1 10^3/uL (0.0-0.1); ABS Eosinophils 0.1 10^3/uL (0.0-0.5); ABS Monocytes 1.1 10^3/uL (0.0-1.1); ABS Neutrophils 5.7 10^3/uL (1.5-7.6); Eosinophil % 1.1 %; Large Platelets Present; Lymphocyte % 12.4 %; Platelet Count 180 10^3/uL (150-450)
[2024-06-12 08:04] LABS: Calcium 7.6 mg/dL (8.6-10.3); Creatinine, Serum 0.56 mg/dL (0.67-1.17); eGFR CKD-EPI 117.1 (>60)
[2024-06-12 08:13] LABS: Albumin 2.5 g/dL (3.2-5.2); Albumin/Globulin Ratio 0.7 (1-3); Globulin 3.6 g/dL (2-4); Total Protein 6.1 g/dL (6.4-8.9)
[2024-06-13 05:53] LABS: ABS Basophils 0.1 10^3/uL (0.0-0.1); ABS Eosinophils 0.1 10^3/uL (0.0-0.5); ABS Monocytes 1.3 10^3/uL (0.0-1.1); ABS Neutrophils 8.3 10^3/uL (1.5-7.6); Eosinophil % 1.1 %; Hematocrit 40.5 % (38-53); Hemoglobin 13.7 g/dL (13.2-16.3); Lymphocyte % 9.5 %; Mean Corpuscular Hemoglobin 34.2 pg (27-33); Mean Corpuscular Hgb Conc 33.8 g/dL (31-36); Mean Corpuscular Volume 101.2 fL (80-97); Mean Platelet Volume 9.9 fL (7.5-11.2); Platelet Count 213 10^3/uL (150-450); Red Cell Distribution Width 15.1 % (12-17); White Blood Count 10.9 10^3/uL (3.6-10.2)
[2024-06-13 06:13] LABS: INR 1.55 (0.85-1.14)
[2024-06-13 06:34] LABS: Calcium 8.1 mg/dL (8.6-10.3); Creatinine, Serum 0.8 mg/dL (0.67-1.17); Potassium 3.9 mmol/L (3.5-5.0); eGFR CKD-EPI 105.2 (>60)
[2024-06-13 06:37] LABS: Albumin 2.7 g/dL (3.2-5.2); Albumin/Globulin Ratio 0.7 (1-3); Globulin 3.9 g/dL (2-4); Total Bilirubin 13.5 mg/dL (0.2-1.0); Total Protein 6.6 g/dL (6.4-8.9)
[2024-06-13 11:59] LABS: Direct Bilirubin 6.5 mg/dL (0.03-0.18)
[2024-06-13] MEDS: Lactulose 30 ml UDC PO SCH (14:19)
[2024-06-13 16:38] LABS: Body Fluid Appearance Clear; Body Fluid Color Yellow; Body Fluid Source Peritonial Fluid
[2024-06-13 16:42] LABS: Body Fluid Total Nucleated 240 /mcL
[2024-06-13 17:11] LABS: Body Fluid Mono 79 %; Body Fluid Other Cells 12; Body Fluid Total Cells Counted 145
[2024-06-14 06:12] LABS: ABS Basophils 0.2 10^3/uL (0.0-0.1); ABS Eosinophils 0.1 10^3/uL (0.0-0.5); ABS Lymphocytes 1.1 10^3/uL (1.0-4.8); ABS Monocytes 1.2 10^3/uL (0.0-1.1); ABS Neutrophils 8.4 10^3/uL (1.5-7.6); ABS Nucleated RBC 0.01 10^3/ul; Eosinophil % 0.6 %; Hematocrit 38.6 % (38-53); Hemoglobin 13.4 g/dL (13.2-16.3); Lymphocyte % 9.7 %; Mean Corpuscular Hemoglobin 34.8 pg (27-33); Mean Corpuscular Hgb Conc 34.6 g/dL (31-36); Mean Corpuscular Volume 100.5 fL (80-97); Mean Platelet Volume 10.1 fL (7.5-11.2); Nucleated Red Blood Cells % 0.1 %/100WBC (0.0-0.8); Platelet Count 232 10^3/uL (150-450); Red Blood Count 3.84 10^6/uL (4.06-5.63); Red Cell Distribution Width 15.2 % (12-17); White Blood Count 10.9 10^3/uL (3.6-10.2)
[2024-06-14 06:24] LABS: INR 1.62 (0.85-1.14)
[2024-06-14 07:04] LABS: Calcium 8.1 mg/dL (8.6-10.3); Creatinine, Serum 0.74 mg/dL (0.67-1.17); Potassium 3.6 mmol/L (3.5-5.0); eGFR CKD-EPI 107.7 (>60)
[2024-06-14 07:12] LABS: Albumin 2.6 g/dL (3.2-5.2); Albumin/Globulin Ratio 0.7 (1-3); Direct Bilirubin 6.2 mg/dL (0.03-0.18); Globulin 3.7 g/dL (2-4); Indirect Bilirubin 6.7 mg/dL (0.3-1.0); Total Bilirubin 12.9 mg/dL (0.2-1.0); Total Protein 6.3 g/dL (6.4-8.9)
[2024-06-14 13:51] VITALS: BP 104/60
[2024-06-15 13:59] LABS: Glucose, BF 123 mg/dL
[2024-06-15 14:25] LABS: Albumin, BF 1.5 g/dL; Fluid Type, Albumin Peritoneal Fluid
[2024-06-15 15:56] LABS: Lactate Dehydrogenase, BF 93 U/L
[2024-06-15 16:11] LABS: Fluid Type, Protein, Total Peritoneal Fluid; Total Protein, BF 2.8 g/dL
== END 2024-06-14 14:20 | DRG 280 ==
LOC: ED 13:19 → EDHOLD 13:19 → SUATTDRO 16:55 → MED 06-03 07:29 → SUATTDRO 06-03 09:44 → MED 06-03 09:44
PROVIDERS: ADMIT Internal Medicine; ATTEND Internal Medicine